=== PATIENT | female | born 1985 | race Caucasian/White ===

== ENCOUNTER → 2017-09-21 08:45 | Outpatient (CLI) | payer OTHER, SELFPAY | LOC: PSN 08:47 | PROVIDERS: Family Provider Family Medicine; PCP Family Medicine; Visit Provider Family Medicine | DX: R07.89 Other chest pain (principal); R00.2 Palpitations; R42 Dizziness and giddiness | CPT/HCPCS: 93225; 93226 ==

== ENCOUNTER → 2017-10-06 08:38 | Outpatient (CLI) | payer OTHER, SELFPAY ==
[2017-10-06 09:15] LABS: Absolute Lymphocyte Count 1.58 X10^3/ul (0.83-4.51); Absolute Neutrophil Count 4.1 X10^3/uL (2.0-7.7); Basophil# 0.04 X10^3/uL; Basophil% 0.6 % (0-1); Eosinophil# 0.18 X10^3/uL; Eosinophils% 2.8 % (0-5); Hematocrit 36.2 % (37-47); Hemoglobin 10.9 g/dl (12.0-15.0); Lymphocyte # 1.58 X10^3/ul (4.0); Mean Corp Hgb Conc 30.1 g/gl (32-36); Mean Corpuscular Hgb 24.8 pg (27.0-32.0); Mean Corpuscular Volume 82.5 fL (81-99); Mean Platelet Vol. 10.6 fl (6.2-12.0); Monocyte# 0.37 X10^3/uL; Monocyte% 5.8 % (0-10); Neutrophil # 4.14 X10^3/uL (2.7-7.7); Neutrophil % 65.5 % (47-70); Platelet Count 252 K/mm3 (150-450); RBC Distribution Width CV 14.1 % (11.6-14.6); RBC Distribution Width SD 42.3 fl (35.1-43.9); Red Blood Count 4.39 M/mm3 (4.2-5.4); White Blood Count 6.3 K/mm3 (4.4-11.0)
[2017-10-06 09:16] LABS: POSITIVE COUNT NO; POSITIVE DIFFERENTIAL NO; POSITIVE MORPHOLOGY NO
[2017-10-06 09:55] LABS: Iron 35 ug/dL (50-170); Iron Binding Capacity,Total 400 ug/dL (250-450)
[2017-10-09 11:48] LABS: Vitamin B12 278 pg/mL (211-911)
== END ==
LOC: LAB 08:39
PROVIDERS: Family Provider Family Medicine; PCP Family Medicine; Visit Provider Family Medicine
DX: D64.9 Anemia, unspecified (principal)
CPT/HCPCS: 36415; 82607; 82746; 83540; 83550; 85025

== ENCOUNTER → 2017-10-30 09:00 | Outpatient (CLI) | payer OTHER, SELFPAY ==
--- NOTE | 2017-10-30 09:01 | ECHOD_ITS ---
Reason For Study: near syncope Procedure This was a 2D Doppler, Color Flow transthoracic echocardiogram. The study was technically difficult. Due to body habitus. Exam performed in department. Left Ventricle Normal LV size. Moderate concentric left ventricular hypertrophy. Left ventricular systolic function is normal. The estimated ejection fraction is 60 %. Normal diastology for age. No regional wall motion abnormalities noted. Right Ventricle Normal RV size. Normal systolic function. Atria The left atrium is mildly enlarged. Normal right atrium. Mitral Valve Normal mitral valve. Mild (1+) eccentric mitral valve insufficiency. Tricuspid Valve Normal tricuspid valve. Mild (1+) tricuspid valve insufficiency. Pulmonary artery systolic pressure is 30 mmHg. Aortic Valve Normal aortic valve. Trisinus/trileaflet aortic valve. Pulmonic Valve The pulmonic valve is not well visualized. Great Vessels Normal aortic root. The pulmonary artery is normal size. Normal inferior vena cava. Pericardium/Pleural No pericardial effusion. MMode/2D Measurements & Calculations LVIDd: 4.9 cm IVSd: 1.4 cm Ao root diam: 2.7 cm LVIDs: 3.1 cm LVPWd: 1.4 cm LA dimension: 4.8 cm RVDd: 3.1 cm FS: 37.3 % LAV(MOD-bp): 71.4 ml LA A4 area: 22.4 cm2 RA A4 area: 17.6 cm2 LAV(MOD-bp) Indexed: 28.2 ml/m2 LAV(MOD-sp2): 66.5 ml LAV(MOD-sp4): 74.5 ml Time Measurements MV dec time: 0.22 sec Doppler Measurements & Calculations MV E max sumanth: 105.2 cm/sec Lat Peak E' Sumanth: 12.9 cm/sec Med Peak E' Sumanth: 10.4 cm/sec MV A max sumanth: 70.2 cm/sec E/E' lat: 8.2 E/E' med: 10.1 MV E/A: 1.5 Ao V2 max: 142.0 cm/sec LV V1 max: 123.3 cm/sec PA V2 max: 106.1 cm/sec Ao max P.1 mmHg LV V1 max P.1 mmHg TR max sumanth: 253.7 cm/sec TR max P.8 mmHg Interpretation Summary Normal LV size. Moderate concentric left ventricular hypertrophy. Left ventricular systolic function is normal. The estimated ejection fraction is 60 %. Normal tricuspid valve. Mild (1+) tricuspid valve insufficiency. Pulmonary artery systolic pressure is 30 mmHg. Normal diastology for age. Ordering Physician: Gage Viera Referring Physician: Gage Viera Performed By: Jazmin Honeycutt, KYLE, RVT
== END ==
LOC: MRI 09:00
PROVIDERS: Family Provider Family Medicine; PCP Family Medicine; Visit Provider Family Medicine
DX: R55 Syncope and collapse (principal)
CPT/HCPCS: 93306

== ENCOUNTER → 2018-03-07 14:10 | Outpatient (CLI) | payer OTHER, SELFPAY ==
--- NOTE | 2018-03-07 14:15 | CT_ITS ---
STUDY: CT MAXILLOFACIAL SINUSES REASON FOR EXAM: Female, 32 years old. History of prior sinus surgery, chronic sinusitis RADIATION DOSAGE (If Supplied By Facility): CTDIvol = ( 33.45 ) mGy, DLP = ( 1055.15 ) mGycm TECHNIQUE: The patient was scanned in a multi detector CT scanner. High resolution axial imaging was performed without the administration of intravenous contrast material. Sagittal and coronal images were reconstructed. Individualized dose optimization techniques were used for this CT. COMPARISON: None. FINDINGS: FRONTAL SINUSES: Normal aeration, without mucosal inflammatory disease. ETHMOIDAL SINUSES: Minimal mucosal thickening of the inferior right ethmoid air cells. No air-fluid levels. MAXILLARY SINUSES: There is polypoid mucosal thickening of the left maxillary sinus filling approximately half of the sinus. No bony destruction or air-fluid levels. There is more circumferential, albeit mildly polypoid, mucosal thickening of the right maxillary sinus filling approximately one third of the maxillary sinus. No air-fluid levels. Bilateral medial maxillary sinus wall osteotomies are identified. SPHENOIDAL SINUSES: Normal aeration, without mucosal inflammatory disease. There is soft tissue/mucosal thickening extending into the right more than left ostiomeatal unit although no expansion is seen. Normal bilateral middle turbinates. Normal bilateral inferior turbinates. Normal midline nasal septum. There is patency of the bilateral nasal airways. The visualized osseous structures are normal. The visualized bilateral orbital contents are normal. CT/Sinus/Facial Bone IMPRESSION: 1. Right more than left chronic sinusitis with mucosal retention cysts. No air-fluid levels or osseous erosion. 2. Mucosal thickening extends into the right more than left ostiomeatal unit. 3. Bilateral medial maxillary sinus wall osteotomies. Electronically Signed: Chencho Phillips MD at 20:01 EDT , Service support ,
== END ==
LOC: CT 14:11
PROVIDERS: Family Provider Internal Medicine; PCP Internal Medicine; Visit Provider Otolaryngology
DX: J32.2 Chronic ethmoidal sinusitis (principal)
CPT/HCPCS: 70486

== ENCOUNTER 2018-03-23 05:52 | Day surgery (SDC) | payer OTHER, SELFPAY ==
--- NOTE | 2018-03-23 | ETH_PTH ---
PATIENT: ATTILA ALVAREZ LOC: [facility] [place] U#:[id number] AGE/SX: 32/F ROOM: RE03/23/[address]: Dr. Kamron Shaikh MD : 1985 BED: DIS: 03/23/2018 SPEC #: [id number] RECD: 03/23/18 10:34 STATUS: ROSMERY CHAO #: [id number] RUSS: 03/23/18 00:[address]: Kamron Shaikh DEPT: SURGICAL PATHOLOGY RECD BY: Kendall Good ENTERED: 03/23/18 10:35 SP TYPE: ETH TISS OTHR DR: Dr. Rizwan Duarte MD Tissues: A - Ethmoid sinus, NOS B - Ethmoid sinus, NOS C - Ethmoid sinus, NOS D - Ethmoid sinus, NOS Procedures: Surgery Specimen Level IV HEADER OPERATION: Endoscopic nasal/sinus with maxillary antrostomy with tissue PRE-OP DIAGNOSIS: Chronic maxillary sinusitis; chronic ethmoidal sinusitis; nasal polyp TISSUE SUBMITTED: A ? Right sinus contents, B ? Left sinus contents, C ? Right maxillary sinus contents, D ? Left maxillary sinus contents MICROSCOPIC DIAGNOSIS A. Right sinus contents, excision: Consistent with chronic sinusitis. Fragments of bone with no pathologic change. B. Left sinus contents, excision. Consistent with chronic sinusitis. Fragments of bone with no pathologic change. C. Right maxillary sinus contents, excision: Consistent with chronic sinusitis. Fragments of bone with no pathologic change. D. Left maxillary sinus contents, excision: Respiratory mucosa with mild chronic inflammation. YASEMIN:tarik 03/26/18 MICROSCOPIC DESCRIPTION Slides are reviewed. GROSS DESCRIPTION A - Received is one container labeled with the patient name and designated right sinus contents. The specimen consists of multiple irregular fragments of red-aguero soft tissue that in aggregate measure 2.5 x 2 x 0.2 cm. The specimen is submitted in its entirety in one cassette. B - Received in fixative is one container labeled with the patient's name and designated left sinus contents. The specimen consists of multiple irregular fragments of red-aguero soft tissue that in aggregate measure 2 x 2 x 0.2 cm. The specimen is totally submitted in one cassette. C - Received is one container labeled with the patient name and designated maxillary sinus content, right. The specimen consists of two irregular fragments of light aguero soft tissue that in aggregate measure 0.2 x 0.2 x less than 0.1 cm. The specimen is totally submitted in one cassette. D - Received is one container labeled with the patient name and designated maxillary contents, left. The specimen consists of multiple irregular fragments of light aguero soft tissue that in aggregate measure 2 x 0.5 x less than 0.1 cm. The specimen is totally submitted in one cassette. / AM:sp 03/23/18 TC: 3 CPT: 30204 x3, 71874 x1
[2018-03-23 06:29] VITALS: BP 117/75; PULSE 60; RESP 16; TEMP 36.7; O2SAT 100; BMI 52.2
[2018-03-23 06:32] LABS: Internal QC Validated? YES +Cl - CLEAR BKGD; Pregnancy, Urine Negative Negative
[2018-03-23 06:45] LABS: Hematocrit 44.7 % (37-47); Hemoglobin 14.5 g/dl (12.0-15.0); Mean Corp Hgb Conc 32.4 g/gl (32-36); Mean Corpuscular Hgb 29.7 pg (27.0-32.0); Mean Corpuscular Volume 91.6 fL (81-99); Mean Platelet Vol. 10.6 fl (6.2-12.0); Platelet Count 223 K/mm3 (150-450); RBC Distribution Width CV 13.5 % (11.6-14.6); RBC Distribution Width SD 44.6 fl (35.1-43.9); Red Blood Count 4.88 M/mm3 (4.2-5.4)
[2018-03-23 06:47] LABS: Scan Indicated on CBC? Y/N NO
[2018-03-23 07:03] LABS: International Normalized Ratio 0.9; Prothrombin Time (Protime)PT. 12.6 SECONDS (11.7-14.9)
[2018-03-23] MEDS: Lidocaine 4% 50 ML Bottle (07:15)
[2018-03-23] MEDS: Oxymetazoline 0.05% 1 SPRAY SPRAY.BTL 15 SPRAY (07:15)
--- NOTE | 2018-03-23 09:14 | PCM.OPRPT ---
Problem List (1) Chronic maxillary sinusitis Status: Chronic (2) Chronic ethmoidal sinusitis Status: Chronic Report of Operation Date of Procedure: 03/23/18 Pre-Operative Diagnosis: Chronic maxillary and ethmoid sinusitis Post-Operative Diagnosis: same Surgery/Procedure Performed:: Bilateral endoscopic total ethmoidectomy, maxillary antorstomies with tissue removal Description of Surgical Findings:: Paula is a 32-year-old female presents evaluation of chronic recurring facial and sinus pain with a history of nasal polyposis with unsuccessful surgery in the past. Although underlying migraine was also suspected CT scan did show chronic maxillary and ethmoid sinus changes and surgery directed at these areas in hopes of alleviation of these complaints was offered and she was eager to proceed. The risks, alternatives, potential benefits, and complications were discussed at length and any questions answered to the patient and/or caregiver's satisfaction. Witnessed informed consent was obtained in the office, and the patient and/or caregiver was agreeable to proceed. Procedure went as follows: The patient was identified in the preoperative holding and brought to the operating room, was placed under general anesthesia and intubated. When appropriate anesthesia was obtained, the navigational head gear was placed and confirmed to be operational in accordance with the washing machine loader's directions. Pledgets soaked in a 50-50 mixture of oxymetazoline and 4% topical lidocaine were placed to decongest the nasal mucosa. These were then removed and beginning on the left side using a 0? endoscope the nasal cavity examined. The insertion of the middle turbinate and uncinate process was then injected with 1% lidocaine with 100,000 epinephrine for a 2 cc total, and a similar injection was then carried on the contralateral side. Upon returning to the left side the middle turbinate was medialized with a [place] elevator. This allowed examination of the maxillary sinus ostia which is then probed with a double ball seeker. There is noted to be an accessory maxillary sinus ostia and this was joined with the natural ostia to prevent a recirculating mucus trap. The uncinate process process was then outfractured with a J curette and transected with a backbiting forceps. This was then removed with the microdebrider creating a wide maxillary antrostomy. There is noted to be a large mucous retention cyst arising from the floor of the sinus and this was then grasped with a giraffe forceps and the lining withdrawn and sent as individual specimen. The ethmoid bulla was then entered and total ethmoidectomy was then carried out working posteriorly to anterior. Any polyps, scar, and mucous secretions were removed. Pledgets soaked in oxymetazoline were then placed for hemostasis and attention turned to the contralateral side. Similar procedure and findings were then carried out. Again there is noted to be an accessory maxillary sinus ostia and a large mucous retention cyst arising from the floor which was again removed and sent as specimen. Floseal hemostatic agent was then applied. An NG tube was then placed to decompress the stomach and the patient returned to anesthesia, revived and extubated having tolerated the procedure well. Type of Anesthesia:: General Anesthesiologist: Messi Pandya Special Medications: none Specimen's removed: maxiallary and ethmoid sinus contents Drains: none Estimated Blood Loss (mL): 200 mL Fluids Replaced: 700 mL Grafts/Implants Used: none - Complications none - Admit VTE Documentation VTE Present on Admission: No VTE Mechan Device Prophylaxis: SCD's VTE Pharm Prophylaxis ordered?: No
--- NOTE | 2018-03-23 09:20 | PCM.DC ---
- Discharge Diagnoses Current Active Problems: Current Active and Chronic Problems (Last Updated 12/19/17 @ 08:39 by Camille Jj) Chronic maxillary sinusitis (Chronic) Chronic ethmoidal sinusitis (Chronic) You will use the following diet at home:: Regular Discharge Activity: Return to Normal Activity, May not drive while taking narcotic pain medications. Call your doctor if your incision/area has: Continuous Slow Oozing, Sudden Increased Bleeding Call your doctor if you observe: Fever of 101 or Higher, Uncontrolled pain Allergies/Adverse Reactions: Allergies cefprozil [From Cefzil] Allergy (Verified 03/19/18 08:16) Hives SEASONAL ALLERGIES Allergy (Intermediate, Uncoded 03/19/18 08:16) Throat swelling, runny nose, itchy eyes Medications to take at Discharge Levothyroxine [Synthroid] 112 mcg PO DAILY 03/07/16 ferrous sulfate 324 mg (65 mg iron) tablet,delayed release 324 mg PO BID tab 11/29/17 fexofenadine 180 mg tablet 180 mg PO QDAY 11/29/17 blood pressure monitor kit See Dose Instructions .ROUTE .MEDSUPPLY #1 ea 02/06/18 RX: Buspirone HCl 5 mg PO TID 03/19/18 RX: Lisinopril [Prinivil] 10 mg PO QHS 03/19/18 Primary Care Physician: Rizwan Duarte MD [Primary Care Provider] - Test Results: Test results from this visit will be discussed in further detail at your follow-up appointment, if applicable. Please Follow Up With: Kamron Shaikh MD When: 2 weeks
[2018-03-23 09:30] VITALS: BP 117/75; BP 150/94; PULSE 75; RESP 17; TEMP 36.8; O2SAT 98
[2018-03-23 09:45] VITALS: BP 117/75; BP 149/88; PULSE 69; RESP 16; O2SAT 97
[2018-03-23 10:00] VITALS: BP 117/75; BP 150/96; PULSE 77; RESP 18; O2SAT 95
[2018-03-23 10:16] VITALS: BP 117/75; BP 150/94; PULSE 60; RESP 18; TEMP 36.8; O2SAT 99
[2018-03-23] MEDS: Ibuprofen 400 MG Tablet PO (10:47)
[2018-03-23 11:06] VITALS: BP 117/75
== END 2018-03-23 11:07 | disposition home or self-care (01) ==
LOC: SDC 05:52 → AC 05:54
PROVIDERS: Anesthesiology; Family Provider Internal Medicine; PCP Internal Medicine; Visit Provider Otolaryngology
PROC: (CPT 31255; principal; 2018-03-23 07:00)
DX: J32.0 Chronic maxillary sinusitis (principal); J32.2 Chronic ethmoidal sinusitis; J34.1 Cyst and mucocele of nose and nasal sinus; Z79.899 Other long term (current) drug therapy; D64.9 Anemia, unspecified; F41.9 Anxiety disorder, unspecified; E07.9 Disorder of thyroid, unspecified; I10 Essential (primary) hypertension; R51 Headache; J33.9 Nasal polyp, unspecified
CPT/HCPCS: 31255; 31267; 81025; 84443; 85027; 85610; 85730; 88305; J7120; J2405

== ENCOUNTER → 2018-07-07 10:38 | Outpatient (CLI) | payer OTHER, SELFPAY ==
[2018-07-07 11:57] LABS: AST(SGOT) 17 U/L (15-37); Alanine Aminotransfer ALT/SGPT 24 U/L (13-56); Albumin, Serum 3.5 g/dL (3.2-5.0); Alkaline Phosphatase 71 U/L (45-117); Anion Gap 5 (5-15); BUN 13 mg/dL (7-18); BUN/Creat Ratio 21.5 RATIO (10-20); Calcium,Total 8.5 mg/dL (8.5-10.1); Chloride 105 mmol/L (98-107); Cholesterol 127 mg/dL (200); Creatinine, Serum 0.61 mg/dL (0.55-1.02); EST Glomerular Filtration Rate 122 mL/min (>60); Est Glom Filt Rate - Afr Amer 148 mL/min (>60); Globulin 3.4 g/dL (2.2-4.2); Glucose 78 mg/dL (74-106); High Density Lipoprotein 41 mg/dL; Potassium 4.4 mmol/L (3.5-5.1); Protein, Total 6.9 g/dL (6.4-8.2); Sodium Level 139 mmol/L (136-145); T4 Free Direct 1.07 ng/dL (0.76-1.46); Thyroid Stim Hormone (TSH) 4.73 uIU/mL (0.358-3.74); Triglycerides 44 mg/dL; Very Low Density Lipoprotein 9 mg/dL (5-40)
--- OUTSIDE RECORDS SUMMARY | 2018-08-24 09:38 | XMS RPT_ITS ---
:1985 Author Organization OHIP Support Name Relationship Address Phone CHAVA QUIROZ Unavailable [id number] + [place] [address] [employer] Unavailable [address] + [place] [phone] AHMET CABRALES Unavailable [address] + [place] [address] CHAVA QUIROZ Unavailable [address] + [place] [address] [employer] [address] + [place] [phone] AHMET CABRALES Unavailable [address] + [place] [address] CHAVA QUIROZ Unavailable [address] + [place] [address] [employer] Un[address] + [place] [phone] AHMET CABRALES Unavailable [address] + [place] [address] CHAVA QUIROZ Unavailable [address] + [place] [address] [employer] Un[address] + [place] [phone] AHMET CABRALES Unavailable Unavailable + CHAVA QUIROZ Unavailable [address] + [place] [address] [employer] Unavailable [address] + [place] [phone] AHMET CABRALES Unavailable Unavailable + [place] [phone] CHAVA QUIROZ Unavailable [address] + [place] [address] [employer] Unavailable [address] + [place] [address] AHMET CABRALES Unavailable . + [place] [address] [employer] Un[address] + [place] [address] [employer] Un[address] + [place] [address] [employer] Un[address] + [place] [address] [employer] Un[address] + [place] [address] SAVANAH ALVAREZ Unavailable [address] + [place] [address] [employer] Un[address] + [place] [address] SAVANAH ALVAREZ Unavailable [address] + [place] [address] [employer] Un[address] + [place] [address] SAVANAH ALVAREZ Unavailable [address] + [place] [address] [employer] Un[address] + [place] [address] SAVANAH ALVAREZ Unavailable [address] + [place] [address] [employer] Un[address] + [place] [address] SAVANAH ALVAREZ Unavailable [address] + [place] [address] [employer] Un[address] + [place] [address] SAVANAH ALVAREZ Unavailable [address] + [place] [address] [employer] Un[address] + [place] [address] SAVANAH ALVAREZ Unavailable [address] + [place] [address] [employer] Un[address] + [place] [address] SAVANAH ALVAREZ Unavailable [address] [place] [phone] [facility] Unavailable [address] + [place] [address] Care Team Providers Name Role Phone NOREEN VIERA Attending Unavailable NOREEN VIERA Referring Unavailable NOREEN VIERA Attending Unavailable AYLIN, NOREEN Tamayo Referring Unavailable AYLIN, NOREEN Tamayo Referring Unavailable AYLIN, NOREEN Tamayo Referring Unavailable Joey Jose Attending Unavailable [place], Noreen Referring Unavailable Price Abraham LOADER OPERATOR/GROUND LEADER-C Attending Unavailable Davidghe, Efewongbe Referring Unavailable [place], Noreen Primary Care Unavailable Kamron Shaikh Attending Unavailable Shaikh, Kamron Referring Unavailable Oleghe, Efewongbe Primary Care Unavailable Oleghe, Efewongbe Attending Unavailable Oleghe, Efewongbe Referring Unavailable Oleghe, Efewongbe Primary Care Unavailable NOT, DEFINED Primary Care Unavailable Christine Campoverde Attending Unavailable Oleghe, Efewongbe Attending Unavailable Oleghe, Efewongbe Referring Unavailable Joey Jose Attending Unavailable Aylin, Noreen Referring Unavailable [place], Noreen Attending Unavailable Aylin, Noreen Primary Care Unavailable Aylin, Noreen Attending Unavailable Aylin, Noreen Referring Unavailable Aylin, Noreen Primary Care Unavailable [place], Noreen Attending Unavailable [place], Noreen Primary Care Unavailable Oleghe, Efewongbe Attending Unavailable Oleghe, Efewongbe Referring Unavailable Shaikh, Kamron Attending Unavailable Shaikh, Kamron Referring Unavailable Oleghe, Efewongbe Primary Care Unavailable Price Abraham LOADER OPERATOR/GROUND LEADER-C Attending Unavailable Oleghe, Efewongbe Referring Unavailable Oleghe, Efewongbe Primary Care Unavailable Davidghe, Efewongbe Attending Unavailable Oleghe, Efewongbe Referring Unavailable Aylin, Noreen Primary Care Unavailable Joey Jose Attending Unavailable Aylin, Noreen Referring Unavailable Aylin, Noreen Primary Care Unavailable Ольга Hercules Attending Unavailable Ольга Hercules Attending Unavailable PROBLEMS PROBLEMS DATE TYPE CONDITION / CODE ATTENDING STATUS SOURCE 07/12/2018 Unknown I10 - Essential Oleghe, Active [place] (primary) hypertension [facility] / I10(ICD-10) Hospital Repository 07/12/2018 Unknown E03.9 - Oleghe, Active [place] Hypothyroidism, [facility] unspecified / Hospital E03.9(ICD-10) Repository 02/06/2018 Unknown J32.9 - Chronic Price Abraham Active [facility] sinusitis, unspecified LOADER OPERATOR/GROUND LEADER-C Community / J32.9(ICD-10) Hospital Repository 12/19/2017 Unknown E66.01 - Morbid Oleghe, Active [place] (severe) obesity due [facility] to excess calories / Hospital E66.01(ICD-10) Repository 12/19/2017 Unknown N89.8 - Other Oleghe, Active [place] specified [facility] noninflammatory Hospital disorders of vagina / Repository N89.8(ICD-10) 12/19/2017 Unknown D50.9 - Iron Oleghe, Active [place] deficiency anemia, [facility] unspecified / Hospital D50.9(ICD-10) Repository 11/29/2017 Unknown R42 - Dizziness and Rebeca, [place] Active [facility] giddiness / Community R42(ICD-10) Hospital Repository 11/24/2017 Unknown R55 - Syncope and Rebeca, [place] Active [facility] collapse / R55(ICD-10) [facility] Hospital Repository 10/06/2017 Unknown D64.9 - Anemia, Noreen [place] Active [facility] unspecified / Community D64.9(ICD-10) Hospital Repository 10/05/2017 Active Anemia, unspecified / NA Active [facility] D64.9(ICD-10) [facility] Main [place] Repository 09/20/2017 Active Abnormal NA Active [facility] electrocardiogram [facility] (ECG) (EKG) / [place] R94.31(ICD-10) Repository 09/20/2017 Active Dizziness and NA Active [facility] giddiness / [facility] Main R42(ICD-10) [place] Repository 09/01/2017 Active Hypothyroidism, NA Active [facility] unspecified / [facility] E03.9(ICD-10) [place] Repository PROCEDURES PROCEDURES No Procedure Records FoundRESULTS RESULTS INTERNAL MEDICINE Observed: 07/17/2018 Status: F Source: [place] OFFICE VISIT 8:41 AM [facility] REPOSITORY [facility] [address] [place] [address] [place] [address] OFFICE VISIT Date of Service: 07/12/18 MR#: [id number] Acct: [id number] Name: GLENDA CABRALES Rep #: [id number] : 1985 Provider: Rizwan Duarte MD Age/Sex: 33/F Location: [facility] [place] Status: Signed Intake Vital Signs07/12/18 Height 5 ft 7 in 07/12/18 Weight: 323 lb 07/12/18 Body Mass Index (BMI) 50.5 07/12/18 Blood Pressure 120/74 Intake Visit Reasons: 2 MO FU Chief Complaint: 2 Mo FU - BW results Is patient in pain?: No Allergies cefprozil [From Cefzil] Allergy (Verified 07/12/18 13:50) Hives SEASONAL ALLERGIES Allergy (Intermediate, Uncoded 07/12/18 13:50) Throat swelling, runny nose, itchy eyes Medications fexofenadine 180 mg tablet 180 mg PO QDAY 11/29/17 [History Confirmed 07/12/18] Lisinopril [Prinivil] 10 mg PO QHS 03/19/18 [History Confirmed 07/12/18] ferrous sulfate 324 mg (65 mg iron) tablet,delayed release 324 mg PO BID #60 tab 04/18/18 [Rx Confirmed 07/12/18] buspirone 5 mg tablet 5 mg PO TID #90 tab 06/12/18 [Rx Confirmed 07/12/18] levothyroxine 137 mcg tablet 137 mcg PO DAILY #30 tab 07/12/18 [Rx Confirmed 07/12/18] PFSH Medical History Headache (Chronic) Iron (Fe) deficiency anemia (Chronic) Hypothyroidism (Chronic) Anxiety (Chronic) Depression (Chronic) Sinusitis (Chronic) Super obesity (Chronic) Left ventricular hypertrophy (Chronic) Surgical History History of tonsillectomy and adenoidectomy (Chronic) History of nasal polypectomy (Chronic) Family History Mother Hypertension Anxiety Thyroid disorder Father Hypertension Social History Smoking Status: Never smoker alcohol intake: current alcohol intake frequency: holidays/special occasions only substance use type: does not use what type of physical activity do you participate in: none HPI HPI Chief Complaint: 2 Mo FU - BW results Details: GLENDA CABRALES, is a 33yo F who presents to the office today for follow-up of her chronic medical conditions. She has no acute complaints at this time. Recently had adjustments to her levothyroxine and repeat thyroid function with improvement in her TSH. She denies any concerns with over or under correction at this time. She reports compliance with medications. ROS Const Constitutional: No chills, fatigue, fever(s), frequent falls, malaise, weakness, sleep problems or change in appetite Eyes Eyes: No blurry vision, change in vision, double vision, discharge or visual disturbances ENT ENT: No abnormal hearing, ear pain, ear pressure, tinnitus or dizziness/vertigo Resp Respiratory: No shortness of breath or wheezing Cardio Cardiology: No chest pain at rest, chest pain with exertion, shortness of breath, dyspnea on exertion, generalized swelling, irregular heart rhythm, lightheadedness, orthopnea, fast heart rate or palpitations Gastro GI: No abdominal pain, change in bowel habits, constipation, diarrhea, nausea/dyspepsia or vomiting Genitourinary-Female: No difficulty urinating, burning urination, painful urination, urinary incontinence, urinary frequency, urinary urgency, urinary hesitancy, urinary retention, Frequent nighttime urination/ nocturia, sexual problems, genital lesions, abnormal vaginal bleeding, pelvic pain, vaginal dryness, vaginal odor or Vaginal Itching Musc Musculoskeletal: No joint pain, back pain, joint swelling, limited range of motion, numbness or tingling Skin Skin: No change in skin color, itching, rash or wounds Breast Breast: No breast lump or breast pain Neuro Neurology: No frequent falls, weakness, visual disturbances, abnormal hearing, numbness, tingling, unsteady gait/balance, dizziness, loss of vision or memory loss Psych Psychiatric: No change in appetite, No memory loss, No anxiety, No depression, No Thoughts of harming yourself/Others Endo Endocrine: No fatigue, heat intolerance, increased thirst/drinking, increased hunger or increased urination Aller/Imm Allergy/Immunologic: No wheezing, itchy eyes or seasonal allergy symptoms Brian/Lymp Hematologic/Lymphatic: No easy bleeding, easy bruising or enlarged lymph nodes Exam Const General: cooperative, no acute distress Orientation: alert, awake, oriented x3 HENMT Head: atraumatic, normocephalic, normal to inspection Ears: hearing grossly normal bilaterally Resp Effort AND Inspection: normal respiratory effort, able to speak in complete sentences Auscultation: Bilateral: Clear to Auscultation Cardio Rate: regular rate Rhythm: regular rhythm Heart Sounds: S1 normal, S2 normal GI Palpation: soft, no hepatosplenomegaly Neuro General: alert, awake, oriented x3, moves all extremities, CN's II-XI intact bilaterally Extrem General: pedal edema Psych Appearance: grossly normal Mental Status: mental status grossly normal Mood: congruent mood Affect: normal affect Assessment AND Plan 1. Hypothyroidism E03.9 Plan TSH has been improved over the last year. Most recent TSH of 4.73, free T4 within normal. Increase levothyroxine to 137 mcg daily. Repeat thyroid function in 6-8 weeks. Advised to call with any questions or concerns. Orders Orders: 2. Hypertension I10 Plan Optimally controlled. Continue current medication and lifestyle/dietary modifications. Orders Orders: 3. Morbid obesity E66.01 Plan States that she has lost about 30 pounds over the last year so. Currently trying out the keto diet. Intermittent fasting also recommended. CMP to monitor kidney and liver function as above. Follow-up in 3 months. This note was generated with [employer] dictation software. It may contain incorrect words, spelling, and punctuation that were not noted in checking the note before signing. Plan Detail Other Medications Changed: Coding Level of Care Code Off vis,est,level 3 Diagnoses Hypothyroidism E03.9 Hypertension I10 Morbid obesity E66.01 07/17/18 0841 <Electronically signed by Rizwan Duarte MD> Date Rizwan Duarte MD Cosigner Signature: Date (if applicable) CC: COMPREHENSIVE METABOLIC Collected: 07/07/2018 Status: F Source: [place] ADA[place] 10:56 AM [facility] REPOSITORY TYPE CODE TESTS RESULT OUT OF RANGE REFERENCE UNITS LAB L501.0100 74-106 mg/dL Normal GLU 78 Result Comment: Please note revised GLUCOSE reference range effective 2017. LAB L501.1000 7-18 mg/dL Normal BUN 13 LAB L501.1100 0.55-1.02 mg/dL Normal CREAT,SERUM 0.61 Result Comment: The validity of the calculated GFR AND GFRAA in patients over 70 years has not been determined. Clinical correlation is essential. LAB L501.1110 >60 mL/min Normal EST GFR 122 Result Comment: Non- GFR Calc LAB L501.1115 >60 mL/min Normal EST GFR - AA 148 Result Comment: GFR Calc LAB L501.1300 10-20 RATIO High BUN/CRE 21.5 LAB L501.1500 6.4-8.2 g/dL T Normal PROT 6.9 LAB L501.1800 3.2-5.0 g/dL Normal ALB 3.5 LAB L501.1950 2.2-4.2 g/dL Normal GLOB 3.4 LAB L501.2000 0.9-2.4 RATIO Normal A/G 1.0 LAB L501.2200 8.5-10.1 mg/dL CA Normal 8.5 LAB L501.4100 15-37 U/L Normal AST 17 LAB L501.4305 45-117 U/L Normal ALK P 71 LAB L501.4405 13-56 U/L Normal ALT 24 LAB L501.4600 0.20-1.00 mg/dL High T BILI 1.20 LAB L501.5300 136-145 mmol/L NA Normal 139 LAB L501.5600 3.5-5.1 mmol/L K Normal 4.4 LAB L501.5900 98-107 mmol/L CL Normal 105 LAB L501.6100 21.0-32.0 mmol/L Normal CO2 29.0 LAB L501.6200 5-15 Normal GAP 5 Performed By: #### L500.4050, L500.4100, L501.9520, L506.0400 #### [facility] [address] [place], [place], [id number] LIPID PROFILE Collected: 07/07/2018 Status: F Source: [place] 10:56 AM [facility] REPOSITORY TYPE CODE TESTS RESULT OUT OF RANGE REFERENCE UNITS LAB L501.4900 200 mg/dL Normal CHOL 127 Result Comment: <200 mg/dL Desirable 200-240 mg/dL Borderline >240 mg/dL High Risk LAB L501.5000 mg/dL Normal TRIG 44 Result Comment: The drugs N-Acetylcysteine and Metamizole may falsely depress this assay. Serum Triglycerides Reference Interval Normal <150 mg/dL Borderline high 150 - 199 mg/dL High 200 - 499 mg/dL Very High > or = 500 mg/dL LAB L501.6400 mg/dL Normal HDL 41 Result Comment: The drugs N-Acetylcysteine and Metamizole may falsely depress this assay. Reference Range HDL <40 mg/dL Low HDL Cholesterol HDL >or= 60 mg/dL High HDL Cholesterol LAB L501.6500 0-130 mg/dL Normal LDL 77 LAB L501.6600 5-40 mg/dL Normal VLDL 9 Performed By: #### L500.4050, L500.4100, L501.9520, L506.0400 #### [facility] [address] [place], [address] THYROID STIM HORMONE Collected: 07/07/2018 Status: F Source: [place] (TSH) 10:56 AM [facility] REPOSITORY TYPE CODE TESTS RESULT OUT OF RANGE REFERENCE UNITS LAB L501.9520 0.358-3.74 uIU/mL High TSH 4.73 Performed By: #### L500.4050, L500.4100, L501.9520, L506.0400 #### [facility] [address] [place], [address] T4 FREE DIRECT Collected: 07/07/2018 Status: F Source: [place] 10:56 AM [facility] REPOSITORY TYPE CODE TESTS RESULT OUT OF RANGE REFERENCE UNITS LAB L506.0400 0.76-1.46 ng/dL Normal T4 FREE 1.07 DIRECT Performed By: #### L500.4050, L500.4100, L501.9520, L506.0400 #### [facility] [address] [place], [address] INTERNAL MEDICINE Observed: 05/11/2018 Status: F Source: [place] OFFICE VISIT 4:33 PM [facility] REPOSITORY [facility] [address] [place] [address] [place] [address] OFFICE VISIT Date of Service: 05/10/18 MR#: [id number] Acct: [id number] Name: GLENDA CABRALES Rep #: [id number] : 1985 Provider: Rizwan Duarte MD Age/Sex: 33/F Location: [facility] Status: Signed Intake Vital Signs05/10/18 Height 5 ft 7 in Intake Visit Reasons: Palpatations, wants Thyroid checked Chief Complaint: palpatations, thyroid check Is patient in pain?: Yes (sinus pressure) Allergies cefprozil [From Cefzil] Allergy (Verified 03/19/18 08:16) Hives SEASONAL ALLERGIES Allergy (Intermediate, Uncoded 03/19/18 08:16) Throat swelling, runny nose, itchy eyes Medications Levothyroxine [Synthroid] 112 mcg PO DAILY 03/07/16 [History Confirmed 03/23/18] fexofenadine 180 mg tablet 180 mg PO QDAY 11/29/17 [History Confirmed 03/23/18] blood pressure monitor kit See Dose Instructions .ROUTE .MEDSUPPLY #1 ea 02/06/18 [Rx Confirmed 02/06/18] Buspirone HCl 5 mg PO TID 03/19/18 [History Confirmed 03/23/18] Lisinopril [Prinivil] 10 mg PO QHS 03/19/18 [History Confirmed 03/23/18] ferrous sulfate 324 mg (65 mg iron) tablet,delayed release 324 mg PO BID #60 tab 04/18/18 [Rx] Is last menstrual period known: Yes PFSH Medical History Headache (Chronic) Iron (Fe) deficiency anemia (Chronic) Hypothyroidism (Chronic) Anxiety (Chronic) Depression (Chronic) Sinusitis (Chronic) Super obesity (Chronic) Left ventricular hypertrophy (Chronic) Surgical History History of tonsillectomy and adenoidectomy (Chronic) History of nasal polypectomy (Chronic) Family History Mother Hypertension Anxiety Thyroid disorder Father Hypertension Social History Smoking Status: Never smoker alcohol intake: current alcohol intake frequency: holidays/special occasions only substance use type: does not use what type of physical activity do you participate in: none HPI HPI Chief Complaint: palpatations, thyroid check Details: GLENDA CABRALES, is a 33yo F who presents to the office today for follow-up of her chronic medical conditions. She also has some concerns at this time. She has a history of hypothyroidism and last thyroid function check with suboptimal control. She has had no dose adjustments. She reports occasional palpitations but denies chest pain and shortness of breath. Has also become more active and currently trying not to keep to diet. She has noticed leg cramps which is said to be worse at night. Denies any significant swelling or tenderness. ROS Const Constitutional: No weight change, body ache, chills, fatigue, sleep problems, fever(s), change in appetite, snoring, weakness, frequent falls, headache(s) or excessive sweating Eyes Eyes: No change in vision, eye pain, light sensitivity or blurry vision ENT ENT: No headache(s), abnormal hearing, ear pain, tinnitus, nasal congestion, sore throat or neck pain Resp Respiratory: No snoring, cough, shortness of breath or wheezing Cardio Cardiology: No excessive sweating, chest pain at rest, chest pain with exertion, shortness of breath, dyspnea on exertion, orthopnea or lightheadedness Gastro GI: No abdominal pain, change in bowel habits, constipation, diarrhea, vomiting, nausea/dyspepsia or cramping Genitourinary-Female: No burning urination, painful urination, urinary incontinence, urinary frequency, abnormal vaginal bleeding, pelvic pain or other Musc Musculoskeletal: Positive for muscle cramps; no neck pain, abnormal walking, joint pain, back pain, limited range of motion, numbness or tingling Skin Skin: No redness, dry skin, itching, lesions, wounds or rash Neuro Neurology: No weakness, frequent falls, headache(s), abnormal hearing, abnormal walking, numbness, tingling, abnormal speech, dizziness or memory loss Psych Psychiatric: No change in appetite, No memory loss, No anxiety, No depression, No Thoughts of harming yourself/Others Endo Endocrine: No fatigue, excessive sweating, cold intolerance, increased thirst/drinking, heat intolerance, flushing or increased hunger Aller/Imm Allergy/Immunologic: No wheezing, itchy eyes, hives or seasonal allergy symptoms Brian/Lymp Hematologic/Lymphatic: No easy bleeding, easy bruising or enlarged lymph nodes Exam Const General: cooperative, no acute distress Orientation: alert, awake, oriented x3 HENMT Head: atraumatic, normocephalic, normal to inspection Ears: hearing grossly normal bilaterally Resp Effort AND Inspection: normal respiratory effort, able to speak in complete sentences Auscultation: Bilateral: Clear to Auscultation Cardio Rate: regular rate Rhythm: regular rhythm Heart Sounds: S1 normal, S2 normal GI Palpation: soft, no hepatosplenomegaly Neuro General: alert, awake, oriented x3, moves all extremities, CN's II-XI intact bilaterally Extrem General: pedal edema bilaterally Location: of the leg Severity: 1+ Psych Appearance: grossly normal Mental Status: mental status grossly normal Mood: congruent mood Affect: normal affect Assessment AND Plan 1. Hypothyroidism E03.9 Plan Suboptimal control. Increase levothyroxine to 125 mcg. Repeat thyroid function in 8 weeks. Advised to call with any questions or concerns. Orders Orders: 2. Hypertension I10 Plan Stable. Continue current medication. Continue lifestyle/dietary modifications. Orders Orders: 3. Morbid obesity E66.01 Plan Currently doing the every 2 diet. Moderation is encouraged. Reassess at next visit. 4. Iron (Fe) deficiency anemia D50.9 Plan Hemoglobin stable during last check. Continue iron supplements. 5. Leg cramps R25.2 Plan Acute. None distressing. Increase fluid intake. Gatorade as needed also recommended. CMP as scheduled above. Advised to call if she notes worsening symptoms. This note was generated with [employer] dictation software. It may contain incorrect words, spelling, and punctuation that were not noted in checking the note before signing. Coding Level of Care Code Off vis,est,level 4 Diagnoses Hypothyroidism E03.9 Hypertension I10 Morbid obesity E66.01 Iron (Fe) deficiency anemia D50.9 Leg cramps R25.2 05/11/18 1633 <Electronically signed by Rizwan Duarte MD> Date Rizwan Duarte MD Cosigner Signature: Date (if applicable) CC: OPERATIVE REPORT Observed: 03/26/2018 Status: F Source: [place] 1:15 PM [facility] REPOSITORY [facility] Medical Records Department [address] [address] Operative Report 03/23/18 0914 MR#: [id number] Acct: [id number] Name: GLENDA CABRALES Rep #: [id number] : 1985 32 From: [place] Shaikh MD PCP: Rizwan Duarte MD Status: DEP [facility] [place] [facility] Problem List (1) Chronic maxillary sinusitis Status: Chronic (2) Chronic ethmoidal sinusitis Status: Chronic Report of Operation Date of Procedure: 03/23/18 Pre-Operative Diagnosis: Chronic maxillary and ethmoid sinusitis Post-Operative Diagnosis: same Surgery/Procedure Performed:: Bilateral endoscopic total ethmoidectomy, maxillary antorstomies with tissue removal Description of Surgical Findings:: Paula is a 32-year-old female presents evaluation of chronic recurring facial and sinus pain with a history of nasal polyposis with unsuccessful surgery in the past. Although underlying migraine was also suspected CT scan did show chronic maxillary and ethmoid sinus changes and surgery directed at these areas in hopes of alleviation of these complaints was offered and she was eager to proceed. The risks, alternatives, potential benefits, and complications were discussed at length and any questions answered to the patient and/or caregiver's satisfaction. Witnessed informed consent was obtained in the office, and the patient and/or caregiver was agreeable to proceed. Procedure went as follows: The patient was identified in the preoperative holding and brought to the operating room, was placed under general anesthesia and intubated. When appropriate anesthesia was obtained, the navigational head gear was placed and confirmed to be operational in accordance with the editor's directions. Pledgets soaked in a 50-50 mixture of oxymetazoline and 4% topical lidocaine were placed to decongest the nasal mucosa. These were then removed and beginning on the left side using a 0 endoscope the nasal cavity examined. The insertion of the middle turbinate and uncinate process was then injected with 1% lidocaine with 100,000 epinephrine for a 2 cc total, and a similar injection was then carried on the contralateral side. Upon returning to the left side the middle turbinate was medialized with a Tamara elevator. This allowed examination of the maxillary sinus ostia which is then probed with a double ball seeker. There is noted to be an accessory maxillary sinus ostia and this was joined with the natural ostia to prevent a recirculating mucus trap. The uncinate process process was then outfractured with a J curette and transected with a backbiting forceps. This was then removed with the microdebrider creating a wide maxillary antrostomy. There is noted to be a large mucous retention cyst arising from the floor of the sinus and this was then grasped with a giraffe forceps and the lining withdrawn and sent as individual specimen. The ethmoid bulla was then entered and total ethmoidectomy was then carried out working posteriorly to anterior. Any polyps, scar, and mucous secretions were removed. Pledgets soaked in oxymetazoline were then placed for hemostasis and attention turned to the contralateral side. Similar procedure and findings were then carried out. Again there is noted to be an accessory maxillary sinus ostia and a large mucous retention cyst arising from the floor which was again removed and sent as specimen. Floseal hemostatic agent was then applied. An NG tube was then placed to decompress the stomach and the patient returned to anesthesia, revived and extubated having tolerated the procedure well. Type of Anesthesia:: General Anesthesiologist: Messi Pandya Special Medications: none Specimen's removed: maxiallary and ethmoid sinus contents Drains: none Estimated Blood Loss (mL): 200 mL Fluids Replaced: 700 mL Grafts/Implants Used: none - Complications none - Admit VTE Documentation VTE Present on Admission: No VTE Mechan Device Prophylaxis: SCD's VTE Pharm Prophylaxis ordered?: No 03/23/18 0920 <Electronically signed by Kamron Shaikh MD> Date Kamron Shaikh MD CC: Rizwan Duarte MD; Kamron Shaikh MD Signed DISCHARGE INSTRUCTION Observed: 03/23/2018 Status: F Source: [place] 12:03 PM [facility] REPOSITORY [facility] Records Department [address] [place] [address] Instructions for Home/Discharge Instructions 03/23/18919 MR#: [id number] Acct: [id number] Name: GLENDA CABRALES Rep #: [id number] : 1985 32 From: Kamron Shaikh MD PCP: Rizwan Duarte MD Status: DEP SDC - Discharge Diagnoses Current Active Problems: Current Active and Chronic Problems (Last Updated 12/19/17 @ 08:39 by Camille Jj) Chronic maxillary sinusitis (Chronic) Chronic ethmoidal sinusitis (Chronic) You will use the following diet at home:: Regular Discharge Activity: Return to Normal Activity, May not drive while taking narcotic pain medications. Call your doctor if your incision/area has: Continuous Slow Oozing, Sudden Increased Bleeding Call your doctor if you observe: Fever of 101 or Higher, Uncontrolled pain Allergies/Adverse Reactions: Allergies cefprozil [From Cefzil] Allergy (Verified 03/19/18 08:16) Hives SEASONAL ALLERGIES Allergy (Intermediate, Uncoded 03/19/18 08:16) Throat swelling, runny nose, itchy eyes Medications to take at Discharge Levothyroxine [Synthroid] 112 mcg PO DAILY 03/07/16 ferrous sulfate 324 mg (65 mg iron) tablet,delayed release 324 mg PO BID tab 11/29/17 fexofenadine 180 mg tablet 180 mg PO QDAY 11/29/17 blood pressure monitor kit See Dose Instructions .ROUTE .MEDSUPPLY #1 ea 02/06/18 RX: Buspirone HCl 5 mg PO TID 03/19/18 RX: Lisinopril [Prinivil] 10 mg PO QHS 03/19/18 Primary Care Physician: Rizawn Duarte MD [Primary Care Provider] - Test Results: Test results from this visit will be discussed in further detail at your follow-up appointment, if applicable. Please Follow Up With: Kamron Shaikh MD When: 2 weeks 03/23/18920 <Electronically signed by Kamron Shaikh MD> Date Kamron Shaikh MD CC: Rizwan Duarte MD CBC-COMPLETE BLOOD CNT Collected: 03/23/2018 Status: F Source: KATHY NO DIFF 6:30 AM [facility] REPOSITORY TYPE CODE TESTS RESULT OUT OF RANGE REFERENCE UNITS LAB L100.1000 4.4-11.0 K/mm3 Normal WBC 8.0 LAB L100.1200 4.2-5.4 M/mm3 Normal RBC 4.88 LAB L100.1300 12.0-15.0 g/dl Normal HGB 14.5 LAB L100.1400 37-47 % Normal HCT 44.7 LAB L100.1500 81-99 fL Normal MCV 91.6 LAB L100.1600 27.0-32.0 pg Normal MCH 29.7 LAB L100.1700 32-36 g/gl Normal MCHC 32.4 LAB L100.1810 11.6-14.6 % Normal RDW CV 13.5 LAB L100.1820 35.1-43.9 fl High RDW SD 44.6 LAB L100.1900 150-450 K/mm3 Normal PLT 223 LAB L100.2000 6.2-12.0 fl Normal MPV 10.6 Performed By: #### L400.7600, L100.0500, L300.3900, L300.4310 #### [facility] [address] [place], [place], [id number] PROTHROMBIN TIME W/INR Collected: 03/23/2018 Status: F Source: KATHY 6:30 AM [facility] REPOSITORY TYPE CODE TESTS RESULT OUT OF RANGE REFERENCE UNITS LAB L300.4150 11.7-14.9 SECONDS Normal PROTIME 12.6 LAB L300.4200 Normal INR 0.9 Performed By: #### L400.7600, L100.0500, L300.3900, L300.4310 #### [facility] [address] [place], [place], [id number] PARTIAL THROMBOPLAST Collected: 03/23/2018 Status: F Source: K[place]Y TIME 6:30 AM [facility] REPOSITORY TYPE CODE TESTS RESULT OUT OF RANGE REFERENCE UNITS LAB L300.4310 24.1-36.2 Seconds Normal PTT 25.0 Performed By: #### L400.7600, L100.0500, L300.3900, L300.4310 #### [facility] [address] [place], [address] THYROID STIM HORMONE Collected: 03/23/2018 Status: F Source: LAUREL (TSH) 6:30 AM [facility] REPOSITORY TYPE CODE TESTS RESULT OUT OF RANGE REFERENCE UNITS LAB L501.9520 0.358-3.74 uIU/mL High TSH 10.80 Performed By: #### L501.9520 #### [facility] [address] [place], [address] ,URINE Collected: 03/23/2018 Status: F Source: K[place]Y 6:18 AM [facility] REPOSITORY TYPE CODE TESTS RESULT OUT OF REFERENCE UNITS RANGE LAB L400.8000 Negative Normal HCGUQUAL Negative Result Comment: Very dilute urine specimens, as indicated by a low specific gravity, may not contain field representatives director levels of hCG. If is still suspected, a first morning urine specimen should be collected 48 hours later and tested. Performed By: #### L400.7600, L100.0500, L300.3900, L300.4310 #### [facility] [address] [place], [address] ETHMOID TISSUE Observed: 03/23/2018 Status: F Source: LA[place]L 12:00 AM [facility] REPOSITORY Patient: GLENDA CABRALES : 1985 () Acct Num: [id number] Phys: Kamron Shaikh MD Unit Num: [id number] [place] [facility] [place]imen: [id number] Received: 03/23/18 - 1034 Spec Type: ETH TISS TISSUES TISSUES: A. Ethmoid sinus, NOS B. Ethmoid sinus, NOS C. Ethmoid sinus, NOS D. Ethmoid sinus, NOS GROSS DESCRIPTION A - Received is one container labeled with the patient name and designated right sinus contents. The specimen consists of multiple irregular fragments of red-aguero soft tissue that in aggregate measure 2.5 x 2 x 0.2 cm. The specimen is submitted in its entirety in one cassette. B - Received in fixative is one container labeled with the patient's name and designated left sinus contents. The specimen consists of multiple irregular fragments of red-aguero soft tissue that in aggregate measure 2 x 2 x 0.2 cm. The specimen is totally submitted in one cassette. C - Received is one container labeled with the patient name and designated maxillary sinus content, right. The specimen consists of two irregular fragments of light aguero soft tissue that in aggregate measure 0.2 x 0.2 x less than 0.1 cm. The specimen is totally submitted in one cassette. D - Received is one container labeled with the patient name and designated maxillary contents, left. The specimen consists of multiple irregular fragments of light aguero soft tissue that in aggregate measure 2 x 0.5 x less than 0.1 cm. The specimen is totally submitted in one cassette. / AM:tarik 03/23/18 TC: 3 CPT: 11549 x3, 25533 x1 HEADER OPERATION: Endoscopic nasal/sinus with maxillary antrostomy with tissue PRE-OP DIAGNOSIS: Chronic maxillary sinusitis; chronic ethmoidal sinusitis; nasal polyp TISSUE SUBMITTED: A Right sinus contents, B Left sinus contents, C Right maxillary sinus contents, D Left maxillary sinus contents MICROSCOPIC DESCRIPTION Slides are reviewed. MICROSCOPIC DIAGNOSIS A. Right sinus contents, excision: Consistent with chronic sinusitis. Fragments of bone with no pathologic change. B. Left sinus contents, excision. Consistent with chronic sinusitis. Fragments of bone with no pathologic change. C. Right maxillary sinus contents, excision: Consistent with chronic sinusitis. Fragments of bone with no pathologic change. D. Left maxillary sinus contents, excision: Respiratory mucosa with mild chronic inflammation. AM:tarik 03/26/18 Signed [facility] 03/26/18 <signature on file> Performed By: #### PET #### [facility] [address] [place], [address] SINUS/FACIAL BONE Observed: 03/07/2018 Status: F Source: LAUREL 2:15 PM [facility] REPOSITORY [facility] Imaging Services [address] [place] [address] Sinus/Facial Bone MR#: [id number] Acct: [id number] Name: GLENDA CABRALES Rep #: [id number] : 1985 F 32 From: Chencho Phillips MD PCP: Rizwan Duarte MD Status: REG CLI Study: Sinus/Facial Bone Date of Exam: 03/07/18 Exam# [id number] Ordering Dr: Kamron Shaikh MD STUDY: CT MAXILLOFACIAL SINUSES REASON FOR EXAM: Female, 32 years old. History of prior sinus surgery, chronic sinusitis RADIATION DOSAGE (If Supplied By Facility): CTDIvol = ( 33.45 ) mGy, DLP = ( 1055.15 ) mGycm TECHNIQUE: The patient was scanned in a multi detector CT scanner. High resolution axial imaging was performed without the administration of intravenous contrast material. Sagittal and coronal images were reconstructed. Individualized dose optimization techniques were used for this CT. COMPARISON: None. FINDINGS: FRONTAL SINUSES: Normal aeration, without mucosal inflammatory disease. ETHMOIDAL SINUSES: Minimal mucosal thickening of the inferior right ethmoid air cells. No air-fluid levels. MAXILLARY SINUSES: There is polypoid mucosal thickening of the left maxillary sinus filling approximately half of the sinus. No bony destruction or air-fluid levels. There is more circumferential, albeit mildly polypoid, mucosal thickening of the right maxillary sinus filling approximately one third of the maxillary sinus. No air-fluid levels. Bilateral medial maxillary sinus wall osteotomies are identified. SPHENOIDAL SINUSES: Normal aeration, without mucosal inflammatory disease. There is soft tissue/mucosal thickening extending into the right more than left ostiomeatal unit although no expansion is seen. Normal bilateral middle turbinates. Normal bilateral inferior turbinates. Normal midline nasal septum. There is patency of the bilateral nasal airways. The visualized osseous structures are normal. The visualized bilateral orbital contents are normal. CT/Sinus/Facial Bone IMPRESSION: 1. Right more than left chronic sinusitis with mucosal retention cysts. No air-fluid levels or osseous erosion. 2. Mucosal thickening extends into the right more than left ostiomeatal unit. 3. Bilateral medial maxillary sinus wall osteotomies. Electronically Signed: Chencho Phillips MD at 20:01 EDT , Service support , CC: Rizwan Duarte MD; Kamron Shaikh MD Retort Setter: Signed INTERNAL MEDICINE Observed: 03/07/2018 Status: F Source: KATHY OFFICE VISIT 10:59 AM [facility] Internal Medicine [address] [place] [address] OFFICE VISIT Date of Service: 03/06/18 MR#: [id number] Acct: [id number] Name: GLENDA CABRALES Rep #: [id number] : 1985 Provider: Price Abraham NP Age/Sex: 32/F Location: [facility] [place] Status: Signed Intake Vital Signs03/06/18 Height 5 ft 7 in Intake Visit Reasons: Sinus pressure AND nosebleeds Chief Complaint: nosebleeds and sinus pressure Is patient in pain?: Yes (sinus pressure) Pain scale (1-10): 5 Allergies cefprozil [From Cefzil] Allergy (Verified 12/19/17 08:36) Hives SEASONAL ALLERGIES Allergy (Intermediate, Uncoded 12/19/17 08:37) Throat swelling, runny nose, itchy eyes Medications Levothyroxine [Synthroid] 112 mcg PO DAILY 03/07/16 [History Confirmed 12/19/17] ferrous sulfate 324 mg (65 mg iron) tablet,delayed release 324 mg PO BID tab 11/29/17 [History Confirmed 12/19/17] fexofenadine 180 mg tablet 180 mg PO QDAY 11/29/17 [History Confirmed 12/19/17] lisinopril 10 mg tablet 10 mg PO QDAY #30 tab 11/29/17 [Rx Confirmed 12/19/17] buspirone 5 mg tablet 5 mg PO TID #90 tab 01/18/18 [Rx] blood pressure monitor kit See Dose Instructions .ROUTE .MEDSUPPLY #1 ea 02/06/18 [Rx Confirmed 02/06/18] fluticasone 50 mcg/actuation nasal spray,suspension 2 spray INTRANASAL QDAY #47.4 g 02/06/18 [Rx Confirmed 02/06/18] dextromethorphan-guaifenesin ER 60 mg-1,200 mg tab,extend release,12hr 1 tab PO Q12H PRN #20 tab 03/06/18 [Rx Confirmed 03/06/18] Is last menstrual period known: Yes PFSH Medical History Headache (Chronic) Iron (Fe) deficiency anemia (Chronic) Hypothyroidism (Chronic) Anxiety (Chronic) Depression (Chronic) Sinusitis (Chronic) Super obesity (Chronic) Left ventricular hypertrophy (Chronic) Surgical History History of tonsillectomy and adenoidectomy (Chronic) History of nasal polypectomy (Chronic) Family History Mother Hypertension Anxiety Thyroid disorder Father Hypertension Social History Smoking Status: Never smoker alcohol intake: current alcohol intake frequency: holidays/special occasions only substance use type: does not use what type of physical activity do you participate in: none HPI HPI Chief Complaint: nosebleeds and sinus pressure Details: GLENDA CABRALES, is a 32 F who presents to the office today for complaints of nosebleeds and sinus pressure. She has a past medical history of hypertension, headaches, hypothyroidism, anxiety, depression, chronic sinusitis, and left ventricular hypertrophy. Patient complains sinus drainage and pressure for the past 3-4 days. She stated she does have a history of a nosebleed x1 a couple of days ago, which resolved quickly. She complains of a sore throat and sinus drainage to the back of her throat. She was recently referred to Dr. Shaikh, ENT for chronic sinusitis, which she stated he ordered a CT scan and is to be done tomorrow. She currently takes Pascale and Flonase, which she stated is not helping much with her sinus drainage. She does note that the sinus drainage causes her to have productive cough of clear sputum that keeps her awake at night. The patient otherwise denies any fever, chills, nausea, vomiting, shortness of breath, chest pain or pressure, palpitations, orthopnea, syncope or presyncopal episodes. ROS Const Constitutional: No weight change, body ache, chills, fatigue, sleep problems, fever(s), change in appetite, snoring, weakness, frequent falls, headache(s) or excessive sweating Eyes Eyes: No change in vision, eye pain, light sensitivity or blurry vision ENT ENT: Positive for nasal congestion, sore throat, nosebleed/epistaxis, sinus pain, throat swelling, sinus pressure, post nasal drip and nasal discharge; no headache(s), abnormal hearing, ear pain, tinnitus or neck pain Resp Respiratory: No snoring, cough, shortness of breath or wheezing Cardio Cardiology: No excessive sweating, chest pain at rest, chest pain with exertion, shortness of breath, dyspnea on exertion, palpitations, orthopnea or lightheadedness Gastro GI: No abdominal pain, change in bowel habits, constipation, diarrhea, vomiting, nausea/dyspepsia or cramping Genitourinary-Female: No burning urination, painful urination, urinary incontinence, urinary frequency, abnormal vaginal bleeding, pelvic pain or other Musc Musculoskeletal: No neck pain, abnormal walking, joint pain, back pain, limited range of motion, numbness or tingling Skin Skin: No redness, dry skin, itching, lesions, wounds or rash Neuro Neurology: No weakness, frequent falls, headache(s), abnormal hearing, abnormal walking, numbness, tingling, abnormal speech, dizziness or memory loss Psych Psychiatric: No change in appetite, No memory loss, No anxiety, No depression, No Thoughts of harming yourself/Others Endo Endocrine: No fatigue, excessive sweating, cold intolerance, increased thirst/drinking, heat intolerance, flushing or increased hunger Aller/Imm Allergy/Immunologic: Positive for throat swelling; no wheezing, itchy eyes, hives or seasonal allergy symptoms Brian/Lymp Hematologic/Lymphatic: No easy bleeding, easy bruising or enlarged lymph nodes Exam Const General: cooperative, comfortable, no acute distress Nutritional Appearance: average body habitus, well nourished Orientation: alert, oriented x3 Limitations: mental status not altered [facility] Head: normal to inspection, normocephalic, atraumatic Ears: external ears normal, TM's normal bilaterally Nose: external nose normal, nasal discharge (clear drainage), mucous membranes and turbinates abnormal erythematous Face and sinus: sinus tenderness ethmoid and maxillary, face symmetric Mouth: lip normal, tongue normal, moist mucous membranes, oral mucosae normal Teeth and gingiva: dentition normal Throat: uvula midline, postnasal drainage, posterior oropharynx abnormal (slight) erythema Eyes General: appearance normal, both eyes and all related structures Neck Lymphatic: no lymphadenopathy noted Resp Effort AND Inspection: normal respiratory effort, able to speak in complete sentences, normal respiratory pattern, symmetric chest movement, no audible wheezes, no cough Auscultation: Bilateral: Clear to Auscultation Cardio Palpation: normal PMI Rate: regular rate Heart Sounds: S1 normal, S2 normal, normal S1 and S2, no click, no gallops, no murmurs, no rubs GI Inspection: normal to inspection Auscultation: normal bowel sounds, no hyperactive bowel sounds, no hypoactive bowel sounds Palpation: soft, no hepatosplenomegaly Neuro General: alert, awake, oriented x3, CN's II-XI intact bilaterally Speech: speech normal Gait: normal gait Motor: muscle tone normal throughout Psych Appearance: grossly normal Mental Status: mental status grossly normal Affect: normal affect Attitude: cooperative Thought Process: normal Assessment AND Plan Problems 1. Acute maxillary sinusitis J01.00 2. Cough R05 Plan Symptoms started 3-4 days ago. She does have a history of chronic sinusitis, however this is an acute presentation. Patient to continue Pascale and Flonase. patient started on Mucinex 1 tablet every 12 hours as needed cold symptoms with full glass of water. Sudafed contraindicated due to patient's hypertension history. Patient instructed and given a [place] pot and encourage fluids. Dr. Shaikh office notified of patient's symptoms and agreed to hold off on antibiotic prescription at this time pending CT that is to be done tomorrow. Patient does have an appointment with ENT later this week as well. Discussed red flag symptoms and when to seek medical attention. Patient to follow-up as previously scheduled or if symptoms worsen. Medications New: dextromethorphan-guaifenesin 60-1,200 mg (Mucinex DM) 1 tab PO Q12H PRN cold symptoms take with full glass of water Plan Detail Follow Up As previously scheduled or sooner and follow-up with the Coding Level of Care Code Off vis,est,level 3 Diagnoses Acute maxillary sinusitis J01.00 Cough R05 03/07/18 1059 <Electronically signed by Price CURRY> Date Price Abraham NP-C Cosigner Signature: Date (if applicable) CC: INTERNAL MEDICINE Observed: 02/06/2018 Status: F Source: KATHY OFFICE VISIT 4:23 PM [facility] [address] [place] [address] [place] [address] OFFICE VISIT Date of Service: 02/06/18 MR#: [id number] Acct: [id number] Name: GLENDA CABRALES Rep #: [id number] : 1985 Provider: Price Abraham NP Age/Sex: 32/F Location: [facility] Status: Signed Intake Vital Signs02/06/18 Height 5 ft 7 in Intake Visit Reasons: acute ear problems, has est appt on 03/26 Chief Complaint: sinus issues. Is patient in pain?: Yes (sinus pressure) Pain scale (1-10): 5 Allergies cefprozil [From Cefzil] Allergy (Verified 12/19/17 08:36) Hives SEASONAL ALLERGIES Allergy (Intermediate, Uncoded 12/19/17 08:37) Throat swelling, runny nose, itchy eyes Medications Levothyroxine [Synthroid] 112 mcg PO DAILY 03/07/16 [History Confirmed 12/19/17] ferrous sulfate 324 mg (65 mg iron) tablet,delayed release 324 mg PO BID tab 11/29/17 [History Confirmed 12/19/17] fexofenadine 180 mg tablet 180 mg PO QDAY 11/29/17 [History Confirmed 12/19/17] lisinopril 10 mg tablet 10 mg PO QDAY #30 tab 11/29/17 [Rx Confirmed 12/19/17] buspirone 5 mg tablet 5 mg PO TID #90 tab 01/18/18 [Rx] blood pressure monitor kit See Dose Instructions .ROUTE .MEDSUPPLY #1 ea 02/06/18 [Rx Confirmed 02/06/18] fluticasone 50 mcg/actuation nasal spray,suspension 2 spray INTRANASAL QDAY #47.4 g 02/06/18 [Rx Confirmed 02/06/18] Is last menstrual period known: Yes PFSH Medical History Headache (Chronic) Iron (Fe) deficiency anemia (Chronic) Hypothyroidism (Chronic) Anxiety (Chronic) Depression (Chronic) Sinusitis (Chronic) Super obesity (Chronic) Left ventricular hypertrophy (Chronic) Surgical History History of tonsillectomy and adenoidectomy (Chronic) History of nasal polypectomy (Chronic) Family History Mother Hypertension Anxiety Thyroid disorder Father Hypertension Social History Smoking Status: Never smoker alcohol intake: current alcohol intake frequency: holidays/special occasions only substance use type: does not use what type of physical activity do you participate in: none HPI HPI Chief Complaint: sinus issues. Details: GLENDA CABRALES, is a 32 F who presents to the office today for complaints of chronic sinus pressure. Patient has a past medical history as listed above Patient states that she deals with chronic sinus pressure but over the last week the pain has been worse. She also complains of ear pressure pain periodically. Patient currently takes Pascale with some relief of the sinus pressure. She has had a history of nasal polyp removal in the past. Patient states she recently started keto diet and states that she has lost 13 pounds over the last 2 weeks. She is concerned that with her recent weight loss her blood pressure will become low since she is on blood pressure medication. The patient otherwise denies any fever, chills, nausea, vomiting, shortness of breath, chest pain or pressure, palpitations, orthopnea, lower extremity edema, syncope or presyncopal episodes. ROS Const Constitutional: Positive for headache(s); no weight change, body ache, chills, fatigue, sleep problems, fever(s), change in appetite, snoring, weakness, frequent falls or excessive sweating Eyes Eyes: No change in vision, eye pain, light sensitivity or blurry vision ENT ENT: Positive for headache(s), sinus pain and sinus pressure; no abnormal hearing, ear pain, tinnitus, nasal congestion, sore throat or neck pain Resp Respiratory: Positive for cough Cough: Yes non-productive; no snoring, shortness of breath or wheezing Cardio Cardiology: No excessive sweating, chest pain at rest, chest pain with exertion, shortness of breath, dyspnea on exertion, palpitations, orthopnea or lightheadedness Gastro GI: No abdominal pain, change in bowel habits, constipation, diarrhea, vomiting, nausea/dyspepsia or cramping Genitourinary-Female: No burning urination, painful urination, urinary incontinence, urinary frequency, abnormal vaginal bleeding, pelvic pain or other Musc Musculoskeletal: No neck pain, abnormal walking, joint pain, back pain, limited range of motion, numbness or tingling Skin Skin: No redness, dry skin, itching, lesions, wounds or rash Neuro Neurology: Positive for headache(s); no weakness, frequent falls, abnormal hearing, abnormal walking, numbness, tingling, abnormal speech, dizziness or memory loss Psych Psychiatric: No change in appetite, No memory loss, No anxiety, No depression, No Thoughts of harming yourself/Others Endo Endocrine: No fatigue, excessive sweating, cold intolerance, increased thirst/drinking, heat intolerance, flushing or increased hunger Aller/Imm Allergy/Immunologic: No wheezing, itchy eyes, hives or seasonal allergy symptoms Brian/Lymp Hematologic/Lymphatic: No easy bleeding, easy bruising or enlarged lymph nodes Exam Const General: cooperative, comfortable, no acute distress Nutritional Appearance: well nourished, obese Orientation: alert, oriented x3 Limitations: mental status not altered HENMT Head: normal to inspection Ears: hearing grossly normal bilaterally Nose: external nose normal, mucous membranes and turbinates abnormal (edematous) erythematous Face and sinus: sinus tenderness Mouth: oral mucosae normal Eyes General: appearance normal, both eyes and all related structures Resp Effort AND Inspection: normal respiratory effort, able to speak in complete sentences, normal respiratory pattern, symmetric chest movement, no audible wheezes, no cough Auscultation: Bilateral: Clear to Auscultation Cardio Palpation: normal PMI Rate: regular rate Heart Sounds: S1 normal, S2 normal, normal S1 and S2, no click, no gallops, no murmurs, no rubs Skin General: no rashes or lesions noted, elasticity normal, turgor normal Lesions: no lesions Rashes: no rashes Neuro General: alert, awake, oriented x3, CN's II-XI intact bilaterally Speech: speech normal Gait: normal gait Motor: muscle tone normal throughout Extrem General: normal to inspection, normal gait, no edema, no pedal edema Psych Appearance: grossly normal Mental Status: mental status grossly normal Affect: normal affect Attitude: cooperative Thought Process: normal Assessment AND Plan 1. Chronic frontal sinusitis J32.1 Plan Patient has ongoing sinus headaches for a couple months. She has a history of nasal polyp removal. Will prescribe Flonase. Continue pascale. Referral made to Dr. Shaikh ENT. Discussed red flag signs and symptoms that would warrant emergency medical care. 2. HTN (hypertension) I10 Plan Per pt she has had significant weight loss (12 lbs) over the last couple weeks. Blood pressure noted in office today 104/76. Will give prescription for patient to obtain blood pressure cuff to monitor her pressure at home. Encouraged to keep blood pressure log and bring log with her to next appointment. If patient becomes hypotensive will consider decreasing lisinopril. Discussed red flag signs and symptoms that would warrant emergency medical care. 3. Super obesity E66.9 Plan Encourage continual weight loss. Discussed weight loss effects on blood pressure. See plan as above. This note was generated with [employer] dictation software. It may contain incorrect words, spelling, and punctuation that were not noted in checking the note before signing. Plan Detail Other Orders Referrals: Other Medications New: blood pressure monitor kit (Blood Pressure KiCheck blood pressure daily for hypertension I t) 10 Follow Up as prev scheduled Coding Level of Care Code Off vis,est,level 3 Diagnoses Chronic frontal sinusitis J32.1 HTN (hypertension) I10 Super obesity E66.9 02/06/18 1623 <Electronically signed by Price CURRY> Date Price CURRY Cosigner Signature: Date (if applicable) CC: INTERNAL MEDICINE Observed: 12/19/2017 Status: F Source: [place] OFFICE VISIT 4:48 PM [facility] Internal [facility] [address] [place] [address] [place] [address] OFFICE VISIT Date of Service: 12/19/17 MR#: [id number] Acct: [id number] Name: GLENDA CABRALES #: [id number] : 1985 Provider: Rizwan Duarte MD Age/Sex: 32/F Location: [facility] [place] Status: Signed Intake Vital Signs12/19/17 Height 5 ft 7 in 12/19/17 Weight: 339 lb 12/19/17 Body Mass Index (BMI) 53.1 12/19/17 Blood Pressure 116/82 Intake Visit Reasons: EST CARE Chief Complaint: Initial visit. - was oing to [facility] Is patient in pain?: No Allergies cefprozil [From Cefzil] Allergy (Verified 12/19/17 08:36) Hives SEASONAL ALLERGIES Allergy (Intermediate, Uncoded 12/19/17 08:37) Throat swelling, runny nose, itchy eyes Medications Levothyroxine [Synthroid] 112 mcg PO DAILY 03/07/16 [History Confirmed 12/19/17] buspirone 5 mg tablet 5 mg PO BID tab 11/28/17 [History Confirmed 12/19/17] ferrous sulfate 324 mg (65 mg iron) tablet,delayed release 324 mg PO BID tab 11/29/17 [History Confirmed 12/19/17] fexofenadine 180 mg tablet 180 mg PO QDAY 11/29/17 [History Confirmed 12/19/17] lisinopril 10 mg tablet 10 mg PO QDAY #30 tab 11/29/17 [Rx Confirmed 12/19/17] PFSH Medical History Headache (Chronic) Iron (Fe) deficiency anemia (Chronic) Hypothyroidism (Chronic) Anxiety (Chronic) Depression (Chronic) Sinusitis (Chronic) Super obesity (Chronic) Left ventricular hypertrophy (Chronic) Surgical History History of tonsillectomy and adenoidectomy (Chronic) History of nasal polypectomy (Chronic) Family History Mother Hypertension Anxiety Thyroid disorder Father Hypertension Social History Smoking Status: Never smoker alcohol intake: current alcohol intake frequency: holidays/special occasions only substance use type: does not use what type of physical activity do you participate in: none HPI HPI Chief Complaint: Initial visit. - was oing to [facility] Details: GLENDA CABRALES, is a 32yo F who presents to the office today to establish care. She has no acute complaints at this time. Recently started on Lisinopril for hypertension and also had an ECHO which was suggestive of LVH thickening. Recent blood work was also suggestive of iron deficiency anemia. She is on iron supplements. She is concerned about vaginal dryness which has been ongoing for some months... She has also had menstrual irregularities. ROS Const Constitutional: No chills, fatigue, fever(s), frequent falls, malaise, weakness, sleep problems or change in appetite Eyes Eyes: No blurry vision, change in vision, double vision, discharge or visual disturbances ENT ENT: No abnormal hearing, ear pain, ear pressure, tinnitus or dizziness/vertigo Resp Respiratory: No cough, shortness of breath or wheezing Cardio Cardiology: No chest pain at rest, chest pain with exertion, shortness of breath, dyspnea on exertion, generalized swelling, irregular heart rhythm, lightheadedness, orthopnea, fast heart rate or palpitations Gastro GI: No abdominal pain, change in bowel habits, constipation, diarrhea, nausea/dyspepsia or vomiting Genitourinary-Female: No difficulty urinating, burning urination, painful urination, urinary incontinence, urinary frequency, urinary urgency, urinary hesitancy, urinary retention, Frequent nighttime urination/ nocturia, sexual problems, genital lesions, abnormal vaginal bleeding, pelvic pain, vaginal dryness, vaginal odor or Vaginal Itching Musc Musculoskeletal: No joint pain, back pain, joint swelling, limited range of motion, muscle weakness, numbness or tingling Skin Skin: No change in skin color, itching, rash or wounds Breast Breast: No breast lump or breast pain Neuro Neurology: No frequent falls, weakness, abnormal hearing, numbness, tingling, unsteady gait/balance, dizziness, loss of vision, memory loss or visual disturbances Psych Psychiatric: No memory loss, No change in appetite, No Thoughts of harming yourself/Others Endo Endocrine: No fatigue, heat intolerance, increased thirst/drinking, increased hunger or increased urination Aller/Imm Allergy/Immunologic: Positive for seasonal allergy symptoms; no wheezing or itchy eyes Brian/Lymp Hematologic/Lymphatic: No easy bleeding, easy bruising or enlarged lymph nodes Exam Const General: cooperative, no acute distress Nutritional Appearance: obese Orientation: alert, awake, oriented x3 HENMT Head: atraumatic, normocephalic, normal to inspection Ears: hearing grossly normal bilaterally Resp Effort AND Inspection: normal respiratory effort, able to speak in complete sentences Auscultation: Bilateral: Clear to Auscultation Cardio Rate: regular rate Rhythm: regular rhythm Heart Sounds: S1 normal, S2 normal GI Inspection: obesity Palpation: soft, no hepatosplenomegaly Musc Musculoskeletal: No muscle weakness Neuro General: alert, awake, oriented x3, moves all extremities, CN's II-XI intact bilaterally Extrem General: no clubbing, cyanosis or edema Psych Appearance: grossly normal Mental Status: mental status grossly normal Mood: congruent mood Affect: normal affect Assessment AND Plan 1. Hypertension I10 Plan Optimally controlled. Continue current medication and life style modifications. Follow up in 3 months. 2. Iron deficiency anemia D50.9 Plan Currently on iron supplements. Repeat CBC in 3 months. Dietary modifications. 3. Morbid obesity E66.01 Plan Patient is motivated to make changes. Referred to the [facility]. Orders Referrals: 4. Vaginal dryness N89.8 Plan Referred to Gynecology. Orders Referrals: 5. Hypothyroidism E03.9 Plan Stable. Continue current medications. Plan Detail Follow Up 3 Months Coding Level of Care Code Off vis,new,level 3 Diagnoses Hypertension I10 Iron deficiency anemia D50.9 Morbid obesity E66.01 Vaginal dryness N89.8 Hypothyroidism E03.9 12/19/17 1648 <Electronically signed by Rizwan Duarte MD> Date Rizwan Duarte MD Cosigner Signature: Date (if applicable) CC: CARDIOLOGY VISIT Observed: 11/29/2017 Status: F Source: [place] REPORT 10:11 AM [facility] REPOSITORY [facility] [address] [place] [address]. [address] [place] [address] OFFICE VISIT Date of Service: 11/29/17 MR#: [id number] Acct: [id number] Name: GLENDA CABRALES Rep #: [id number] : 1985 Provider: Joey Jose MD Age/Sex: 32/F Location: [facility] [place] Status: Signed HPI [facility] Chief Complaint: Initial visit. Details: GLENDA CABRALES, is a 32 F who presents to the office today for an initial visit. She had initially presented to you with dizziness as well as what she thought was sinus problems. She was evaluated and noted to be anemic and hypothyroid and has been under treatment for the above. As part of her dizziness workup she also underwent an echocardiogram which demonstrated preserved ejection fraction estimated to be 60% but with evidence of left ventricular hypertrophy which was moderate. She did have mild mitral and tricuspid regurgitation and she was asked to see the nurse licensed practical for the above. She has not had any chest pain per se no near syncope or syncope. She also underwent a 48 hour Holter which demonstrated an average heart rate of 75 bpm minimum of 47 and a maximum 145 bpm. Occasional ventricular ectopic beats were noted but did not correlate with any significant abnormalities. Her baseline EKG demonstrated normal sinus rhythm with a rate of 65 bpm and left atrial enlargement. Her physical exam today demonstrates clear lung murrell regular rate and rhythm and no pedal edema her diastolic blood pressure is mildly elevated. Intake Vital Signs11/29/17 Height 5 ft 7 in 11/29/17 Weight: 346 lb 11/29/17 Body Mass Index (BMI) 54.1 11/29/17 Blood Pressure 136/84 11/29/17 Respiratory Rate 18 11/29/17 Pulse Rate 72 Intake Visit Reasons: PCP ref'd for dizziness and some chest tightness Allergies cefprozil [From Cefzil] Allergy (Verified 11/29/17 09:42) Hives Medications Levothyroxine [Synthroid] 112 mcg PO DAILY 03/07/16 [History Confirmed 08/14/17] buspirone 5 mg tablet 5 mg PO BID tab 11/28/17 [History Confirmed 11/28/17] ferrous sulfate 324 mg (65 mg iron) tablet,delayed release 324 mg PO BID tab 11/29/17 [History Confirmed 11/29/17] fexofenadine 180 mg tablet 180 mg PO QDAY 11/29/17 [History Confirmed 11/29/17] [facility] Medical History Super obesity (Chronic) Left ventricular hypertrophy (Chronic) Anxiety (Chronic) Depression (Chronic) Hypothyroidism (Chronic) Iron (Fe) deficiency anemia (Chronic) Sinusitis (Chronic) Surgical History History of nasal polypectomy (Chronic) History of tonsillectomy and adenoidectomy (Chronic) Family History Mother Hypertension Social History Smoking Status: Never smoker ROS Const Const: Positive for other; negative for fatigue, weakness, difficulty sleeping, frequent falls, headache(s) or excessive sweating Eyes Eyes: Negative for loss of peripheral vision, transient loss of vision, blurry vision or double vision ENT ENT: Positive for dizziness (Had an episode of lightheadedness and facial numbness 3 months ago.); negative for headache(s), Nosebleed/epistaxis or balance problems Cardio Chest Pain: Yes (tightness with increased stress) Edema: None Muscle aches with walking: None Resp Respiratory: Negative for SOB with activity, SOB at rest, SOB orthopnea\SOB lying down or paroxysmal nocturnal dyspnea GI GI: Negative nausea or heartburn : Negative for hematuria Musc Musc: Negative for muscle aches/ myalgia, muscle weakness, joint pain or balance problems Skin Skin: Negative non-healing lesions, unusual bruising or rash Neuro Neuro: Positive for dizziness (Had an episode of lightheadedness and facial numbness 3 months ago.), lightheadedness and other (Admits to feeling better when hydrated and has been treated for sinusitis); negative for weakness, frequent falls, blurry vision, headache(s), orthostatic symptoms or double vision Brian Hematologic/Lymphatic: Negative for easy bruising Endo Endo: Negative for fatigue, excessive sweating or increased thirst/drinking Psych Psych: Negative for anxiety or depression Allergy Allergy/Immunology: Negative for hives, Negative for rash Cardiology Exam Const Appearance: cooperative, healthy appearing, well developed, well groomed and no acute distress Nutritional Appearance: well nourished and average body habitus Orientation: alert, awake and oriented x3 Head Head: normal to inspection, normocephalic and atraumatic Ears: hearing grossly normal bilaterally and external ears normal Nose: external nose normal, nasal mucous membranes and turbinates normal, nares normal, septum normal, no nasal discharge Face and Sinus: face symmetric Mouth: oral mucosae normal, tongue normal, oropharynx normal and moist mucous membranes Teeth and gingiva: dentition normal Throat: posterior oropharynx normal, tonsils normal and uvula midline Eyes General: appearance normal, both eyes and all related structures Eyelids: eyelids normal Conjunctivae: conjunctivae normal Pupils: PERRL, normal by confrontation and accommodation normal EOM: EOM intact bilaterally Neck Neck: normal visual inspection, trachea midline and no JVD JVD: +5 Carotids: normal carotid upstroke and bounding pulses Chest Chest inspection: normal inspection of the chest, symmetric chest movement and normal respiratory effort Auscultation: Bilateral: Clear to Auscultation Cardio Palpation: normal PMI Rate: regular rate Rhythm: regular rhythm Heart sounds: S1 normal, S2 normal and normal, physiologic split S2; negative rub, gallop or murmur GI GI: normal to inspection, soft, no hepatosplenomegaly and bowel sounds present Neuro General: alert, awake, oriented x3, no focal sensory deficit, gait normal and moves all extremities Skin Skin: no rashes or lesions noted Extremities Pulses: Normal: Right Femoral Pulse, Left Femoral Pulse, Right Dorsalis Pedis Pulse, Left Dorsalis Pedis Pulse, Right Posterior Tibial Pulse, Left Posterior Tibial Pulse, Right Radial Pulse, Left Radial Pulse Lower Extremity Edema: None: Bilateral Musculoskel Musculoskeletal: No joint tenderness Psych Psychological: normal affect Assessment AND Plan 1. Hypertension I10 Plan I suspect she does have hypertension based on her blood pressure numbers as well as had concentric left ventricular hypertrophy my recommendation would be for us to start her on lisinopril 10 mg a day and monitor her blood pressure through your outfit. I do not think that we need any further testing at this particular time. 2. Intermittent lightheadedness R42 Plan I suspect the above is due to a combination of her anemia as well as possibly her blood pressure. This is being corrected and at this time I will suggest that she be watched and can follow-up through your office. I do not think that there is any significant cardiac abnormality and her Holter monitor was rather reassuring. Thank you for allowing me to participate in the care of your patient. Please don't hesitate to call if any issues arise Plan Detail Follow Up prn Coding Level of Care Code Off vis,new,level 3 Diagnoses Hypertension I10 Intermittent lightheadedness R42 Coding Level of Care Code Off vis,new,level 3 Diagnoses Hypertension I10 Intermittent lightheadedness R42 11/29/17 1011 <Electronically signed by Joey Jose MD> Date Joey Jose MD Cosigner Signature: Date (if applicable) CC: Noreen Viera MD ECHOCARDIOGRAM COMPLETE Observed: 10/30/2017 Status: F Source: [place] 4:43 PM [facility] REPOSITORY [facility] Cardi[facility] [place] [address] Echo Complete 10/30/17 0903 MR#: [id number] Acct: [id number] Name: GLENDA CABRALES Rep #: [id number] : 1985 32 From: Joey Jose MD Attending Dr: Noreen Viera MD Status: REG CLI Ordering Dr: Noreen Viera MD Date: 10/30/17 Location: MRI Sex: F C Admitted: Reason For Study: near syncope Procedure This was a 2D Doppler, Color Flow transthoracic echocardiogram. The study was technically difficult. Due to body habitus. Exam performed in department. Left Ventricle Normal LV size. Moderate concentric left ventricular hypertrophy. Left ventricular systolic function is normal. The estimated ejection fraction is 60 %. Normal diastology for age. No regional wall motion abnormalities noted. Right Ventricle Normal RV size. Normal systolic function. Atria The left atrium is mildly enlarged. Normal right atrium. Mitral Valve Normal mitral valve. Mild (1+) eccentric mitral valve insufficiency. Tricuspid Valve Normal tricuspid valve. Mild (1+) tricuspid valve insufficiency. Pulmonary artery systolic pressure is 30 mmHg. Aortic Valve Normal aortic valve. Trisinus/trileaflet aortic valve. Pulmonic Valve The pulmonic valve is not well visualized. Great Vessels Normal aortic root. The pulmonary artery is normal size. Normal inferior vena cava. Pericardium/Pleural No pericardial effusion. MMode/2D Measurements AND Calculations LVIDd: 4.9 cm IVSd: 1.4 cm Ao root diam: 2.7 cm LVIDs: 3.1 cm LVPWd: 1.4 cm LA dimension: 4.8 cm RVDd: 3.1 cm FS: 37.3 % LAV(MOD-bp): 71.4 ml LA A4 area: 22.4 cm2 RA A4 area: 17.6 cm2 LAV(MOD-bp) Indexed: 28.2 ml/m2 LAV(MOD-sp2): 66.5 ml LAV(MOD-sp4): 74.5 ml Time Measurements MV dec time: 0.22 sec Doppler Measurements AND Calculations MV E max sumanth: 105.2 cm/sec Lat Peak E' Sumanth: 12.9 cm/sec Med Peak E' Sumanth: 10.4 cm/sec MV A max sumanth: 70.2 cm/sec E/E' lat: 8.2 E/E' med: 10.1 MV E/A: 1.5 Ao V2 max: 142.0 cm/sec LV V1 max: 123.3 cm/sec PA V2 max: 106.1 cm/sec Ao max P.1 mmHg LV V1 max P.1 mmHg TR max sumanth: 253.7 cm/sec TR max P.8 mmHg Interpretation Summary Normal LV size. Moderate concentric left ventricular hypertrophy. Left ventricular systolic function is normal. The estimated ejection fraction is 60 %. Normal tricuspid valve. Mild (1+) tricuspid valve insufficiency. Pulmonary artery systolic pressure is 30 mmHg. Normal diastology for age. Ordering Physician: Noreen Viera Referring Physician: Noreen Viera Performed By: Jazmin Honeycutt, CHUNCS, RVT 10/30/171641 Date Joey Jose MD CC: Noreen Viera MD Date Dictated: 10/30/17902 Date Transcribed: 10/30/171641 Retort Setter: Signed CBC W/DIFF, AUTOMATED Collected: 10/06/2017 Status: F Source: [place] 8:42 AM [facility] REPOSITORY TYPE CODE TESTS RESULT OUT OF RANGE REFERENCE UNITS LAB L100.1000 4.4-11.0 K/mm3 Normal WBC 6.3 LAB L100.1200 4.2-5.4 M/mm3 Normal RBC 4.39 LAB L100.1300 12.0-15.0 g/dl Low HGB 10.9 LAB L100.1400 37-47 % Low HCT 36.2 LAB L100.1500 81-99 fL Normal MCV 82.5 LAB L100.1600 27.0-32.0 pg Low MCH 24.8 LAB L100.1700 32-36 g/gl Low MCHC 30.1 LAB L100.1810 11.6-14.6 % Normal RDW CV 14.1 LAB L100.1820 35.1-43.9 fl Normal RDW SD 42.3 LAB L100.1900 150-450 K/mm3 Normal PLT 252 LAB L100.2000 6.2-12.0 fl Normal MPV 10.6 LAB L100.2100 47-70 % Normal NEUT% 65.5 LAB L100.2200 19-41 % Normal LY% 25.0 LAB L100.2300 0-10 % Normal MONO% 5.8 LAB L100.2400 0-5 % Normal EO% 2.8 LAB L100.2500 0-1 % Normal BASO% 0.6 LAB L100.2550 0.0-0.9 % Normal IM GRAN % 0.300 Result Comment: IG% - Immature Granulocytes (promyelocytes, myelocytes and metamyelocytes) > 1% indicates that a LEFT SHIFT is Present. LAB L100.2620 2.0-7.7 X10 3/uL Normal Absolute Neut 4.1 LAB L100.2720 0.83-4.51 X10 3/ul Normal Absolute Lymph 1.58 Performed By: #### L100.0100 #### [facility] [address] [place], [address] IRON BINDING Collected: 10/06/2017 Status: F Source: [facility] 8:42 AM [facility] REPOSITORY Order Comment: Is Patient Taking Vitamins or Folic Acid Supplements? N TYPE CODE TESTS RESULT OUT OF RANGE REFERENCE UNITS LAB L503.6075 250-450 ug/dL Normal TIBC 400 Performed By: #### L503.6075, L503.6150, L506.0250 #### [facility] [address] [place], [address] IRON Collected: 10/06/2017 Status: F Source: [place] 8:42 AM [facility] REPOSITORY Order Comment: Is Patient Taking Vitamins or Folic Acid Supplements? N TYPE CODE TESTS RESULT OUT OF RANGE REFERENCE UNITS LAB L503.6150 50-170 ug/dL Low IRON 35 Performed By: #### L503.6075, L503.6150, L506.0250 #### [facility] [address] [place], [address] FOLATES, (FOLIC ACID) Collected: 10/06/2017 Status: F Source: [place] 8:42 AM [facility] REPOSITORY Order Comment: Is Patient Taking Vitamins or Folic Acid Supplements? N TYPE CODE TESTS RESULT OUT OF RANGE REFERENCE UNITS LAB L506.0250 3.1-55.4 ng/mL Normal FOLATES 16.70 Performed By: #### L503.6075, L503.6150, L506.0250 #### [facility] [address] [place], [address] VITAMIN B12 Collected: 10/06/2017 Status: F Source: [place] 8:42 AM [facility] REPOSITORY Order Comment: MISSED TEST ADD TO C112 FROM 10/06/17 TYPE CODE TESTS RESULT OUT OF RANGE REFERENCE UNITS LAB L503.0105 211-911 pg/mL Normal Vitamin B12 278 Performed By: #### L503.0105 #### [facility] [address] [place], [address] CBC AND DIFFERENTIAL Collected: 09/20/2017 Status: F Source: [place] 10:[address] [facility] REPOSITORY TYPE CODE TESTS RESULT OUT OF REFERENCE UNITS RANGE LAB WBC 3.70-11.00 k/uL WBC 9.32 LAB RBC 3.90-5.20 m/uL RBC 4.42 LAB HGB 11.5-15.5 g/dL Low Hemoglobin 11.0 LAB HCT 36.0-46.0 % Hematocrit 37.5 LAB MCV 80.0-100.0 fL MCV 84.8 LAB MCH 26.0-34.0 pG Low MCH 24.9 LAB MCHC 30.5-36.0 g/dL Low MCHC 29.3 LAB RDWCV 11.5-15.0 % RDW-CV 14.3 LAB PLTCT 150-400 k/uL Platelet Count 264 LAB MPV 9.0-12.7 fL MPV 11.6 LAB ANEUT % Neut% 72.0 LAB AANEUT 1.45-7.50 k/uL Abs Neut 6.71 LAB ALYMP % Lymph% 18.6 LAB AALYMP 1.00-4.00 k/uL Abs Lymph 1.73 LAB AMONO % Cascade% 6.0 LAB AAMONO <0.87 k/uL Abs Cascade 0.56 LAB AEOS % Eosin% 2.8 LAB AAEOS <0.46 k/uL Abs Eosin 0.26 LAB ABASO % Baso% 0.6 LAB AABASO <0.11 k/uL Abs Baso 0.06 LAB AUNRBC 0 /100 WBC NRBCs 0.0 LAB ABNRBC <0.01 k/uL Absolute nRBC <0.01 LAB DTYP DTYPE Auto Diff Performed By: #### CBCDIF, CMP, MG1, TSH #### [facility] [address] [place], [place] [address] COMP METABOLIC PANEL Collected: 09/20/2017 Status: F Source: [place] 10:15 AM [facility] REPOSITORY TYPE CODE TESTS RESULT OUT OF REFERENCE UNITS RANGE LAB TP 6.3-8.0 g/dL Protein, Total 6.7 LAB ALB 3.9-4.9 g/dL Low Albumin 3.7 LAB CA 8.5-10.2 mg/dL Calcium, Total 8.9 LAB TBIL 0.2-1.3 mg/dL Bilirubin, Total 0.7 LAB ALKP 32-117 U/L Alkaline Phosphatase 56 LAB AST 13-35 U/L AST 17 LAB GLU 74-99 mg/dL Glucose 96 Result Comment: The [place] Diabetes Association (ADA) provides guidance for cutoff values for fasting glucose and random glucose. The ADA defines fasting as no caloric intake for at least 8 hours. Fas ting plasma glucose results between 100 to 125 mg/dL indicate increased risk for diabetes (prediabetes). Fasting plasma glucose results greater than or equal to 126 mg/dL meet the criteria for diagnosis of diabetes. In the absence of unequivocal hyperglycemia, results should be confirmed by repeat testing. In a patient with classic symptoms of hyperglycemia or hyperglycemic crisis, random plasma glucose results greater than or equal to 200 mg/dL meet the criteria for diagnosis of diabetes. Reference: Standards of Medical Care in Diabetes 2016, [place] [employer] Association. Diabetes Care. 2016.39(Suppl 1). LAB BUN 7-21 mg/dL BUN 11 LAB CRET 0.58-0.96 mg/dL Creatinine 0.66 LAB NA 136-144 mmol/L Sodium 137 LAB K 3.7-5.1 mmol/L Potassium 4.2 LAB CL 97-105 mmol/L Chloride 104 LAB CO2 22-30 mmol/L CO2 24 LAB AGAP 9-18 mmol/L Anion Gap 9 LAB ALT 7-38 U/L ALT 16 LAB GFRAA eGFR- Amer. >60 LAB GFRNAA . eGFR-All Other Races >60 Result Comment: eGFR (Estimated GFR) Units of measure: mL/min/1.73 meters squared eGFR is derived from the reexpressed MDRD Study equation using the following parameters: serum creatinine, age, gender and race. The creatinine assay has been calibrated to be traceable to IDMS. An eGFR <60 mL/min/1.73m2 for >3 months is consistent with chronic kidney disease. Refer to KDOQI guidelines for clinical interpretation. In patients with unstable renal function, e.g. those with acute kidney injury, the eGFR may not accurately reflect actual GFR. Performed By: #### CBCDIF, CMP, MG1, TSH #### [facility] [address] [place] [address] MAGNESIUM Collected: 09/20/2017 Status: F Source: [place] 10:[address] [facility] REPOSITORY TYPE CODE TESTS RESULT OUT OF REFERENCE UNITS RANGE LAB MG 1.7-2.3 mg/dL Magnesium 1.8 Performed By: #### CBCDIF, CMP, MG1, TSH #### [facility] [address] [place] [address] TSH Collected: 09/20/2017 Status: F Source: [place] 10:[address] [facility] REPOSITORY TYPE CODE TESTS RESULT OUT OF RANGE REFERENCE UNITS LAB TSH 0.400-5.500 uU/mL TSH 2.260 Result Comment: If the patient is , TSH reference range varies by gestational period: First Trimester 0.100-2.500 uU/mL Second Trimester 0.200-3.000 uU/mL Third Trimester 0.300-3.000 uU/mL References: 1. De Alejo L, Christian M, Rayo EK, et al. Management of Thyroid Dysfunction during and : An Endocrine Society Clinical Practice Guideline. J Clin Endocrinol Metab, 2012:97:0562-0086. 2. Eulalio POSADA. Overview of thyroid disease in . UpToDate. 2016. Accessed on January 15, 2016. Performed By: #### CBCDIF, CMP, MG1, TSH #### [facility] [address] [place], [place] [address] PROGRESS Observed: 09/20/2017 Status: COMPLETED Source: [place] 9:08 AM [facility] REPOSITORY HNO ID: [id number] Author: Noreen Viera Service: (none) Author Type: Physician Type: Progress Notes Filed: 09/20/2017 10:08 AM Note Text: Patient presents with: Dizziness Sinusitis Nausea HPI: Patient presents today for office visit for acute visit. Nursing Notes: Cici Abrams Ma 09/20/2017 8:44 AM Signed ENT: Patient complains of sinus pressure. Duration: one month Fever: No. Headache: Yes. Sore throat: Yes. Ear pain: Right, clogged. Nasal drainage: Yes. Cough: slight. Shortness of breath: sometimes. Nausea: Yes. Vomiting: No. Diarrhea: No. Previous treatment: No. Pt woke up yesterday morning feeling dizzy. It lasted a couple hours. Pt has right sided facial numbness intermittently for the past month. Also pt is waking up in the morning feeling shaky, nausea, and weak. She has been checking blood sugars, and normally in the 100's dizziness just started yesterday. Has had numbness in face on and off for a month. Has had some lightheaded spells on and off for the last month and had checked sugars but they have been ok. Rare headache. No head trauma. Has nasal congestion. No numbness or weakness on arms or legs. Had tooth infection recently but that was on the other side. Denies chest pain or palpitations. No edema. Her chest feels a little tight though. She has woken up the last few mornings and her chest feels weird and she feels hot. Wondered if she was having anxiety. She is concerned because her mother had a prolonged QT. She has backed her celexa down to half a pill. [place] tired on 20 mg. Does feel a little better. [place] like she could pass out yesterday but no syncope. Gets lightheaded when getting up. No dizziness when laying down. MEDICATIONS: Current Outpatient Prescriptions: levothyroxine (SYNTHROID) 125 mcg tablet Take 1 tablet by mouth once daily. citalopram (CELEXA) 20 mg tablet Take 1 tablet by mouth once daily. No current facility-administered medications for this visit. ALLERGIES: ALLERGIES Allergen Reactions - Cefzil [Cefprozil] Hives - Seasonal Allergies Other: See Comments Watery eyes nasal drainage PAST MEDICAL HISTORY Diagnosis Date - Anxiety - Depression - History of chicken pox - Hypoactive thyroid PAST SURGICAL HISTORY Procedure Laterality Date - EXCISION OF NASAL POLYPS SIMPLE - REMOVE TONSIL AND ADENOI UNDER AGE 14 FAMILY HISTORY Problem Relation Age of Onset - Thyroid Mother hypothyroid - Hypertension Mother all of mothers side - anxiety [Other] [OTHER] Mother - anxiety [Other] [OTHER] Sister - Breast Cancer Other great maternal aunt, paternal great grandmother - Diabetes maternal great aunt and uncle Social History Marital status: Single Spouse name: Years of education: Number of children: Social History Main Topics Smoking status: Never Smoker Smokeless status: Never Used Alcohol use: Yes Comment: ocassionally Drug use: No Sexual activity: Yes Partners with: Male control/protection: None Reviewed current medications, allergies, past medical history, surgical history, family history and social history today. REVIEW OF SYSTEMS All other reviewed and negative other than HPI. HEALTH MAINTENANCE: Reviewed health maintenance issues today and recommended the following in detail. VITALS: BP 118/62 Pulse 66 Temp 36.3 ?C (97.3 ?F) (Tympanic) SpO2 98% See nursing note for orthostatics. Last 4 Encounter Wt Readings: Date: Wt: 09/01/2017 156 kg (344 lb) 04/07/2016 152 kg (335 lb) 02/02/2015 145.6 kg (321 lb) 12/31/2014 144.7 kg (319 lb) PHYSICAL EXAMINATION: General appearance: Well appearing, alert, in no acute distress, well-hydrated, well nourished. Skin: Skin color, texture, turgor normal, no suspicious rashes or lesions Head: Normocephalic, no masses, lesions, tenderness or abnormalities Eyes: Anicteric sclera. Pupils are equally round and reactive to light. Extraocular movements are intact. No nystagmus. Ears: External ears normal, canals clear Nose/Sinuses: Nares normal, septum midline, mucosa normal, no drainage or sinus tenderness Oropharynx: Lips, mucosa, and tongue normal, teeth and gums normal, oropharynx normal Neck: Supple, no adenopathy; thyroid symmetric, normal size, no bruits Lungs: Lungs clear to auscultation. No wheezing, rhonchi, rales Heart: RRR without murmur, gallop, or rubs. No ectopy Abdomen: Normal abdominal exam, Abdomen soft, non-tender. Bowel sounds normal. No masses, organomegaly Extremities: No deformities, edema, skin discoloration, clubbing or cyanosis. Good capillary refill. Neuro: Gait normal. Reflexes normal and symmetric. Sensation grossly intact. ASSESSMENT/PLAN: 1. Numbness - ICD9: 782.0, ICD10: R20.0 (primary diagnosis) - do mri to rule out significant laborer aquatic life cause for symptoms. Call if worsens. - MRI BRAIN WO/W IVCON 2. Lightheaded - ICD9: 780.4, ICD10: R42 - As above. - ECG COMPLETE W INTERPRETATION - CBC + DIFF - COMP METABOLIC PANEL - MRI BRAIN WO/W IVCON 3. Chest discomfort - ICD9: 786.59, ICD10: R07.89 - holter and echo 4. Vertigo - ICD9: 780.4, ICD10: R42 - as above. - ECG COMPLETE W INTERPRETATION - MRI BRAIN WO/W IVCON 5. Bacterial sinusitis - ICD9: 473.9, 041.9, ICD10: J32.9, B96.89 - Supportive care with plenty of fluids, rest, and analgesia prn. - Follow up in one week if symptoms persist or worsen. - DOXYCYCLINE MONOHYDRATE 100 MG TABLET 6. Anxiety - ICD9: 300.00, ICD10: F41.9 - stop celexa with QT. Switch to buspar. Follow up in two weeks. - HYDROXYZINE PAMOATE 25 MG CAPSULE 7. Prolonged Q-T interval on ECG - ICD9: 794.31, ICD10: R94.31 - as above. Stop celexa. - CBC + DIFF - COMP METABOLIC PANEL - MAGNESIUM BLD 8. Near syncope - ICD9: 780.2, ICD10: R55 - as above. Red flags for re-assessment reviewed with patient in detail. - HOLTER MONITOR 24 HOUR - ECHO - MRI BRAIN WO/W IVCON Noreen Viera MD RTO in next appt next month and prn. TSH Collected: 09/01/2017 Status: F Source: [place] 9:23 AM [facility] REPOSITORY TYPE CODE TESTS RESULT OUT OF RANGE REFERENCE UNITS LAB TSH 0.400-5.500 uU/mL High TSH 12.190 Result Comment: If the patient is , TSH reference range varies by gestational period: First Trimester 0.100-2.500 uU/mL Second Trimester 0.200-3.000 uU/mL Third Trimester 0.300-3.000 uU/mL References: 1. Whitlock L, Christian M, Rayo EK, et al. Management of Thyroid Dysfunction during and : An Endocrine Society Clinical Practice Guideline. J Clin Endocrinol Metab, 2012:97:5235-8274. 2. Eulalio POSADA. Overview of thyroid disease in . UpToDate. 2016. Accessed on January 15, 2016. Performed By: #### TSH, LIPB #### [facility] [address] [place], [place] [address] LIPID PANEL, BASIC Collected: 09/01/2017 Status: F Source: [place] 9:[address] [facility] REPOSITORY TYPE CODE TESTS RESULT OUT OF REFERENCE UNITS RANGE LAB CHOL <200 mg/dL Cholesterol 121 Result Comment: <200 mg/dL, Desirable 200-239 mg/dL, Borderline high >239 mg/dL, High LAB TRIGLY <150 mg/dL Triglyceride 46 Result Comment: <150 mg/dL, Normal 150-199 mg/dL, Borderline high 200-499 mg/dL, High >499 mg/dL, Very high LAB HDL >39 mg/dL HDL-Cholesterol Low 36 Result Comment: 40-59 mg/dL, Acceptable >59 mg/dL, High: Negative risk factor for coronary heart disease <40 mg/dL, Low: Positive risk factor for coronary heart disease LAB LDL <100 mg/dL LDL-Cholesterol 76 Result Comment: <100 mg/dL, Optimal 100-129 mg/dL, Near optimal/above optimal 130-159 mg/dL, Borderline high 160-189 mg/dL, High >189 mg/dL, Very high Secondary prevention optimal LDL Cholesterol levels are recommended to be < 70 mg/dL LAB NONHDL <130 mg/dL Non HDL Cholesterol 85 Result Comment: <130 mg/dL, Optimal 130-159 mg/dL, Near optimal/above optimal 160-189 mg/dL, Borderline high 190-219 mg/dL, High >219 mg/dL, Very high Secondary prevention optimal non HDL Cholesterol levels are recommended to be < 100 mg/dL LAB FT hrs Fasting Time 12 LAB VLDL <30 mg/dL VLDL Cholesterol 9 LAB TCHDL <5.10 TC:HDL Ratio 3.36 LAB LDLHDL <2.54 LDL:HDL Ratio 2.11 Result Comment: Reference: 1. National Cholesterol Education Program ATP III Guideline At-A-Glance Quick Desk Reference: National Heart, Lung, and Blood [place]. National Institutes of Health. 2001: NIH Publication No. 01-3305. 2. An International Atherosclerosis Society position paper: global recommendations for the management of dyslipidemia: executive summary, Atherosclerosis. 2014: 232(2):410-413. Performed By: #### TSH, LIPB #### [facility] [address] [id number] PROGRESS Observed: 09/01/2017 Status: COMPLETED Source: [place] 8:48 AM [facility] [place] REPOSITORY HNO ID: [id number] Author: Noreen Viera Service: (none) Author Type: Physician Type: Progress Notes Filed: 09/01/2017 9:05 AM Note Text: Patient presents with: Recheck HPI: Patient presents today for office visit for follow up. HYPOTHYROID: Patient is compliant with medications: Was off. Went to er and has been back on meds but 112 Patient has changes in energy: Yes Psych: she has not really been using any lorazepam. Is using [facility] Wants to get back on something prescription. Some depression. Worries a lot. No suicidal ideation. Dental: dentist prescribed clinda for tooth infection. Wanted to make sure was ok with her current meds. Using advil prn. She is using a lot of it. Wants to know if there is something else we can try. MEDICATIONS: Current Outpatient Prescriptions: levothyroxine (SYNTHROID) 125 mcg tablet Take 1 tablet by mouth daily before breakfast. LORazepam (ATIVAN) 0.5 mg tab Take 1 tablet by mouth twice daily. ALBUTEROL INHALATION Inhale as instructed. No current facility-administered medications for this visit. ALLERGIES: ALLERGIES Allergen Reactions - Cefzil [Cefprozil] Hives - Seasonal Allergies Other: See Comments Watery eyes nasal drainage PAST MEDICAL HISTORY Diagnosis Date - Anxiety - Depression - History of chicken pox - Hypoactive thyroid PAST SURGICAL HISTORY Procedure Laterality Date - EXCISION OF NASAL POLYPS SIMPLE - REMOVE TONSIL AND ADENOI UNDER AGE 14 FAMILY HISTORY Problem Relation Age of Onset - Thyroid Mother hypothyroid - Hypertension Mother all of mothers side - anxiety [Other] [OTHER] Mother - anxiety [Other] [OTHER] Sister - Breast Cancer Other great maternal aunt, paternal great grandmother - Diabetes maternal great aunt and uncle Social History Marital status: Single Spouse name: Years of education: Number of children: Social History Main Topics Smoking status: Never Smoker Smokeless status: Never Used Alcohol use: Yes Comment: ocassionally Drug use: No Sexual activity: Yes Partners with: Male control/protection: None Reviewed current medications, allergies, past medical history, surgical history, family history and social history today. REVIEW OF SYSTEMS All other reviewed and negative other than HPI. HEALTH MAINTENANCE: Reviewed health maintenance issues today and recommended the following in detail. VITALS: BP 130/80 (BP Site: Left Arm, BP Position: Sitting, BP Cuff Size: Large Adult) Pulse 68 Temp 36.9 ?C (98.4 ?F) (Left Tympanic) Resp 12 Wt (!) 156 kg (344 lb) BMI 53.88 kg/m2 Last 4 Encounter Wt Readings: Date: Wt: 09/01/2017 156 kg (344 lb) 04/07/2016 152 kg (335 lb) 02/02/2015 145.6 kg (321 lb) 12/31/2014 144.7 kg (319 lb) PHYSICAL EXAMINATION: General appearance: Well appearing, alert, in no acute distress, well-hydrated, well nourished. Skin: Skin color, texture, turgor normal, no suspicious rashes or lesions Head: Normocephalic, no masses, lesions, tenderness or abnormalities Neck: Supple, no adenopathy; thyroid symmetric, normal size, no bruits Lungs: Lungs clear to auscultation. No wheezing, rhonchi, rales Heart: RRR without murmur, gallop, or rubs. No ectopy Abdomen: Normal abdominal exam, Abdomen soft, non-tender. Bowel sounds normal. No masses, organomegaly Extremities: No deformities, edema, skin discoloration, clubbing or cyanosis. Good capillary refill. ASSESSMENT/PLAN: 1. Hypothyroidism, unspecified type - ICD9: 244.9, ICD10: E03.9 (primary diagnosis) - Instructed patient on importance of taking on an empty stomach either first thing in the morning or at bedtime. Check labs. - LEVOTHYROXINE 112 MCG TABLET - TSH BLD - LIPID PANEL BASIC 2. Anxiety - ICD9: 300.00, ICD10: F41.9 - use meds as needed. - LORAZEPAM 0.5 MG TABLET - start celexa 3. Dental implant pain, initial encounter - ICD9: 996.79, ICD10: T85.848A - use meds. - MELOXICAM 15 MG TABLET Noreen Viera MD RTO in one month and prn. 12 LEAD ELECTROCARDIOGRAM Observed: 08/17/2017 Status: F Source: [place] 11:43 AM [facility] REPOSITORY [facility] Cardiovascular Services [address] [place] [address] 12 Lead EKG 08/14/172125 MR#: [id number] Acct: [id number] Name: GLENDA CABRALES Rep #: [id number] : 1985 32 From: Chas Alejandro MD Attending Dr: Status: DEP ER Ordering Dr: Christine Campoverde MD Date: 08/14/17 Location: ED Sex: F C Admitted: Test Reason : SOB Blood Pressure : / mmHG Vent. Rate : 072 BPM Atrial Rate : 072 BPM P-R Int : 140 ms QRS Dur : 080 ms QT Int : 450 ms P-R-T Axes : 055 006 037 degrees QTc Int : 492 ms Normal sinus rhythm Low voltage QRS Borderline ECG Confirmed by CHAS ALEJANDRO ([id number]), editor farm journal JOHN ALVAREZ ([id number]) on 08/17/2017 11:43:14 AM Referred By: SUKUMAR Confirmed By:CHAS ALEJANDRO 08/17/17 1143 Date Chas Alejandro MD CC: DEFINED NOT Signed EMERGENCY DEPARTMENT Observed: 08/15/2017 Status: F Source: [place] SUMMARY 2:22 AM [facility] REPOSITORY [facility] Medical Records Department [address] [place] [address] Emergency Department Summary 08/14/17 2313 MR#: [id number] Acct: [id number] Name: GLENDA CABRALES Rep #: [id number] : 1985 32 From: Christine Campoverde MD PCP: NOT, DEFINED Status: DEP ER - ER Visit Summary Date of Service: 08/14/17 Chief Complaint: Cough and cold symptoms History of Present Illness: The patient is a 32 F reports chest pressure with cough and sinus pressure for the past 3-4 days. Patient states she felt warm but never measured a fever. She reports having 2 panic attacks last night. Patient admits she has not taken her thyroid medication in at least 2 or 3 months. She is currently waiting a new insurance card so she can establish care with a new primary care physician. Physical Examination: Vital signs are unremarkable. Patient sitting upright in bed no acute distress. Head neck examination is unremarkable. Heart is regular rate and rhythm. Lungs clear. Abdomen is soft nontender. Test Results: EKG is sinus at 72 with no sign of acute ischemia. Two-view chest x-ray is normal. CBC and chemistry studies are unremarkable. Troponin is less than 0.02. test negative. TSH returns at 34.3. Emergency Department Course and Treatment: Patient was given a DuoNeb treatment here. She was given a dose of her normal Synthroid and a prescription for 30 day supply was written. I discussed with her the importance of taking her thyroid medications. She is referred to a local physician to establish primary care. She requested something for anxiety and panic attacks, stating that she used to be on Zoloft. I advised her to give her a home pack of Vistaril, but do not feel comfortable writing these more long- term medications. She voices her understanding. Treatment Plan: [] Disposition: Discharge Impression: 1. Viral URI 2. Hypothyroidism with medication noncompliance This note was generated with Plynkedation software. It may contain incorrect words, spelling, and punctuation that were not noted in review of the chart prior to signing ED Disposition - Plan for ED Patient: Disposition: Home or Assisted Living Chief Complaint: Cold Sx Instructions: ED Hypothyroidism, ED URI Viral Prescriptions: Levothyroxine [Synthroid] 112 mcg PO DAILY #30 tablet Referrals: Rizwan Duarte MD [STAFF PHYSICIAN] - As soon as possible What to do if you have Problems For any increased pain, shortness of breath, bleeding, nausea or vomiting, chest pain, or any unexpected problems, contact your Primary Care Provider. Call [facility] ([phone]) or report to the closest Emergency Room. Call 911 if necessary. 08/15/17221 <Electronically signed by Christine Campoverde MD> Date Christine Campoverde MD Cosigner Signature (If Indicated): Date CC: DEFINED NOT DISCHARGE INSTRUCTION Observed: 08/14/2017 Status: F Source: [place] 11:15 PM [facility] REPOSITORY [facility] Medical Records Department [address] [place] [id number] Discharge Instruction 08/14/172313 MR#: [id number] Acct: [id number] Name: GLENDA CABRALES Rep #: [id number] : 1985 32 From: Christine Campoverde MD PCP: NOT, DEFINED Status: REG ER ED Disposition - Plan for ED Patient: Disposition: Home or Assisted Living Chief Complaint: Cold Sx Instructions: ED URI Viral, ED Hypothyroidism Prescriptions: Levothyroxine [Synthroid] 112 mcg PO DAILY #30 tablet Referrals: Rizwan Duarte MD [STAFF PHYSICIAN] - As soon as possible What to do if you have Problems For any increased pain, shortness of breath, bleeding, nausea or vomiting, chest pain, or any unexpected problems, contact your Primary Care Provider. Call [facility] ([phone]) or report to the closest Emergency Room. Call 911 if necessary. 08/14/172314 <Electronically signed by Christine Campoverde MD> Date Christine Campoverde MD Cosigner Signature (If Indicated): Date CC: DEFINED NOT CBC W/DIFF, AUTOMATED Collected: 08/14/2017 Status: F Source: [place] 9:45 PM [facility] REPOSITORY TYPE CODE TESTS RESULT OUT OF RANGE REFERENCE UNITS LAB L100.1000 4.4-11.0 K/mm3 Normal WBC 6.8 LAB L100.1200 4.2-5.4 M/mm3 Normal RBC 4.60 LAB L100.1300 12.0-15.0 g/dl Low HGB 11.3 LAB L100.1400 37-47 % Normal HCT 37.8 LAB L100.1500 81-99 fL Normal MCV 82.2 LAB L100.1600 27.0-32.0 pg Low MCH 24.6 LAB L100.1700 32-36 g/gl Low MCHC 29.9 LAB L100.1810 11.6-14.6 % Normal RDW CV 14.4 LAB L100.1820 35.1-43.9 fl Normal RDW SD 43.2 LAB L100.1900 150-450 K/mm3 Normal PLT 208 LAB L100.2000 6.2-12.0 fl Normal MPV 10.3 LAB L100.2100 47-70 % Normal NEUT% 64.9 LAB L100.2200 19-41 % Normal LY% 22.2 LAB L100.2300 0-10 % High MONO% 11.0 LAB L100.2400 0-5 % Normal EO% 1.3 LAB L100.2500 0-1 % Normal BASO% 0.3 LAB L100.2550 0.0-0.9 % Normal IM GRAN % 0.300 Result Comment: IG% - Immature Granulocytes (promyelocytes, myelocytes and metamyelocytes) > 1% indicates that a LEFT SHIFT is Present. LAB L100.2620 2.0-7.7 X10 3/uL Normal Absolute Neut 4.4 LAB L100.2720 0.83-4.51 X10 3/ul Normal Absolute Lymph 1.51 Performed By: #### L100.0100 #### [facility] [place] [place], [address] ,SERUM,HCG QUALI. Collected: Status: F Source: [place] 08/14/2017 9:45 PM [facility] REPOSITORY TYPE CODE TESTS RESULT OUT OF REFERENCE UNITS RANGE LAB L700.7000 0-9 Nonpreg Negative Normal HCGSQUAL NEGATIVE LAB L700.6700 =>Qualitative mIU/mL Normal HCG Qual < 1 triggr Performed By: #### L700.6800 #### [facility] [address] [place], [place], [address] BASIC METABOLIC Collected: 08/14/2017 Status: F Source: [place] PROFILE (BMP) 9:45 PM [facility] REPOSITORY Order Comment: 'TROP' Serial specimen #1, #2, #3, or #4: 1 TYPE CODE TESTS RESULT OUT OF RANGE REFERENCE UNITS LAB L501.0100 70-110 mg/dL Normal GLU 84 LAB L501.1000 7-18 mg/dL Normal BUN 11 LAB L501.1100 0.55-1.02 mg/dL Normal 0.80 CREAT,SERUM Result Comment: The validity of the calculated GFR AND GFRAA in patients over 70 years has not been determined. Clinical correlation is essential. LAB L501.1110 >60 mL/min Normal EST GFR 89 Result Comment: Non- GFR Calc LAB L501.1115 >60 mL/min Normal EST GFR - AA 108 Result Comment: GFR Calc LAB L501.1255 ml/min Normal Estimated CRCL 99.99 LAB L501.1300 10-20 RATIO Normal BUN/CRE 13.7 LAB L501.2200 8.5-10 mg/dL Normal .1 CA 8.7 LAB L501.5300 136-14 mmol/L Normal 5 NA 141 LAB L501.5600 3.5-5. mmol/L Normal 1 K 4.0 LAB L501.5900 98-107 mmol/L Normal CL 107 LAB L501.6100 21.0-3 mmol/L Normal 2.0 CO2 26.0 LAB L501.6200 5-15 Normal GAP 8 Performed By: #### L500.2500, L501.4010, L501.9520 #### [facility] [address] [place], [place], [address] TROPONIN-I Collected: 08/14/2017 Status: F Source: [place] 9:45 PM [facility] REPOSITORY Order Comment: 'TROP' Serial specimen #1, #2, #3, or #4: 1 TYPE CODE TESTS RESULT OUT OF RANGE REFERENCE UNITS LAB L501.4010 <0.06 ng/mL Normal < 0.02 TROPONIN-I Result Comment: TROPONIN-I EXPECTED VALUES <0.05 NEGATIVE 0.06 - 0.59 AT RISK OF TN > OR = 0.60 SUGGEST TN Performed By: #### L500.2500, L501.4010, L501.9520 #### [facility] [address] [place], [place], [id number] THYROID STIM HORMONE Collected: 08/14/2017 Status: F Source: LAUREL (TSH) 9:45 PM [facility] REPOSITORY Order Comment: 'TROP' Serial specimen #1, #2, #3, or #4: 1 TYPE CODE TESTS RESULT OUT OF RANGE REFERENCE UNITS LAB L501.9520 0.358-3.74 uIU/mL High TSH 34.30 Performed By: #### L500.2500, L501.4010, L501.9520 #### [facility] [address] [place], [place], [id number] CHEST PA AND LATERAL Observed: 08/14/2017 Status: F Source: LAUREL 9:07 PM [facility] REPOSITORY [facility] Imaging Services [address] [place] [address] Chest PA and Lateral MR#: [id number] Acct: [id number] Name: GLENDA CABRALES Rep #: [id number] : 1985 F 32 From: Braeden Chandler MD PCP: NOT, DEFINED Status: REG ER Study: Chest PA and Lateral Date of Exam: 08/14/17 Exam# [id number] Ordering Dr: Christine Campoverde MD STUDY: X-RAY CHEST REASON FOR EXAM: Female, 32 years old. Cough TECHNIQUE: Frontal and lateral views of the chest. COMPARISON: None. FINDINGS: The lungs are clear and expanded. There is no demonstrated pleural abnormality. Normal size heart. Normal mediastinum and major. Normal visualized pulmonary arteries. Normal visualized aortic arch and descending thoracic aorta. Normal visualized thoracic spine. Normal visualized ribs, clavicles, and shoulders. There is no demonstrated abnormality of the visualized soft tissue structures of the upper abdomen. RAD/Chest PA and Lateral IMPRESSION: Normal x-ray examination of the chest. Electronically Signed: Braeden Chandler MD at 22:18 EST , Service support , CC: DEFINED NOT; Christine Campoverde MD Retort Setter: Signed ALLERGIES ALLERGIES DATE TYPE / CODE NAME / CODE REACTION SEVERITY SOURCE 07/12/2018 Drug cefprozil/F0060 Hives Unknown Kathy Allergy/[id number](S 74000(RXNORM) [facility] NOMED CT) Hospital Repository 07/12/2018 Miscellaneous SEASONAL Throat MO Harvey Allergy/968144302(S ALLERGIES swelling, [facility] NOMED CT) runny nose, Hospital itchy eyes Repository 08/14/2017 Drug No Known Unknown Harvey Allergy/853932972(S [facility] Repository 08/04/2014 DRUG CEFPROZIL HIVES [place] INGREDI/504828670(S Clinic Main NOMED CT) [place] Repository 10/29/2012 Environ/[id number](S SEASONAL OTHER: [facility] Repository ENCOUNTERS ENCOUNTERS ADMIT/DISCHARGE ACCOUNT ADMITTING ENCOUNTER LOCATION SOURCE NUMBER CLASS 07/12/2018/07/12/20 [id number] Ambulatory BMSBuilding:B Harvey 18 [place] Repository 07/07/2018 [id number] Ambulatory [facility] ing:LAB Repository 05/10/2018/05/10/20 [id number] Ambulatory BMSBuilding:B Kathy 18 [place] Repository 03/23/2018/03/23/20 [id number] Ambulatory [address] HospitalBuild Hospital ing:SDC Repository 03/07/2018 [id number] Ambulatory [facility] HospitalBuild Hospital ing:CT Repository 03/06/2018/03/06/20 [id number] Ambulatory BMSBuilding:Dylan Villela [place] Repository 02/06/2018/02/07/20 [id number] Ambulatory BMSBuilding:Dylan Chavez 18 MS.[facility] Repository 12/19/2017/12/20/19 [id number] Ambulatory BMSBuilding:Dylan Chavez 18 [place] Repository 11/29/2017/11/30/19 [id number] Ambulatory BMSBuilding:Dylan Villela [facility] Repository 11/28/2017 [id number] Ambulatory BMSBuilding:Dylan Chavez [facility] Repository 11/28/2017 [id number] Ambulatory BMSBuilding:Dylan Chavez [facility] Repository 10/30/2017 [id number] Ambulatory BMSBuilding:[facility] Repository 10/30/2017 [id number] Ambulatory [facility] HospitalBuild Hospital ing:MRI Repository 10/06/2017 [id number] Ambulatory [facility] HospitalBuild Hospital ing:LAB Repository 10/05/2017 [id number] Ambulatory [facility] Repository 09/21/2017 [id number] Ambulatory BMSBuilding:[facility] Repository 09/21/2017 [id number] Ambulatory [facility] HospitalBuild Hospital ing:PSN Repository 09/20/2017/09/20/19 [id number] Ambulatory [address] Repository 09/20/2017/09/22/19 [id number] Ambulatory [address] Repository 09/20/2017/09/20/19 [id number] Ambulatory [address] Repository 09/01/2017/09/01/19 [id number] Ambulatory [address] Repository 09/01/2017/09/29/19 [id number] Ambulatory [address] Repository 08/14/2017/08/14/19 [id number] Emergency Harvey Harvey 18 [facility] ing:ED Repository PAYERS PAYERS ENCOUNTER GUARANTOR PAYER SUBSCRIBER SOURCE 07/12/2018 GLENDA T Primary GLENDA T Kathy [id number] N Insurance:CARESOURCE KERONDOB: [facility] [id number] [address]Pbu: Number: Repository [id number] (HP) Date:7736-20-66UW [address] [address]OS: 07/12/2018 Secondary NOT GIVENUNK Harvey Insurance:SELF PAY [facility] Number: Effective Repository Date:2018-06-07 07/07/2018 GLENDA T Primary GLENDA T Harvey [id number] N Insurance:CARESOURCE KERONDOB: [facility] [id number] [place] [address]Nns: Number: Repository [id number] (HP) Date:5819-72-33LL [address] [address]HV: 07/07/2018 Secondary NOT GIVENUNK Kathy Insurance:SELF PAY [facility] Number: Effective Repository Date:2018-06-29 05/10/2018 GLENDA T Primary GLENDA T Harvey [id number] N Insurance:CARESOLIANET GUERRAB: [facility] [id number] [place] [address]Mpl: Number: Repository [id number] (HP) Date:9496-56-83XB [address] [address]BF: 05/10/2018 Secondary NOT GIVENUNK Kathy Insurance:SELF PAY [facility] Number: Effective Repository Date:2018-05-10 03/23/2018 GLENDA T Primary GLENDA T Kathy [id number] W Insurance:CARESOURCE MARIB: [facility] [id number] Number: Repository [id number]: 330 [id number] [phone] (HP) Date:7681-16-45AS [address] [place] [address]KO: 03/23/2018 Secondary NOT GIVENUNK Kathy Insurance:SELF PAY [facility] Number: Effective Repository Date:2018-03-15 03/07/2018 GLENDA T Primary GLENDA T Harvey [id number] W Insurance:CARESOURCE KERONDOB: [place] [facility] [id number] Number: Repository [address]Qpo: 330 [id number] [phone] () Date:7004-26-34CG [address] [address]FQ: 03/07/2018 Secondary NOT GIVENUNK Kathy Insurance:SELF PAY [facility] Number: Effective Repository Date:2018-02-21 03/06/2018 GLENDA T Primary GLENDA T Kathy [id number] W Insurance:CARESOURCE MARIB: [facility] [place] [facility] [id number] Number: Repository [address]Khm: 330 [id number] [phone] () Date:9599-37-99SL [address] [address]CE: 03/06/2018 Secondary NOT GIVENUNK Harvey Insurance:SELF PAY [facility] Number: Effective Repository Date:2018-03-06 02/06/2018 GLENDA T Primary GLENDA T Kathy [id number] W Insurance:CARESOURCE MARIB: [facility] [place] [facility] [id number] Number: Repository [id number]: 330 [id number] [phone] () Date:9825-13-81NS [address] [address]HC: 02/06/2018 Secondary NOT GIVENUNK Harvey Insurance:SELF PAY [facility] Number: Effective Repository Date:2018-02-05 12/19/2017 GLENDA T Primary GLENDA T Kathy [id number] W Insurance:CARESOURCE KERONDOB: [facility] [place] [facility] [id number] Number: Repository [address]Bpa: 330 [id number] [phone] () Date:9676-38-24MX [address] [address]UF: 12/19/2017 Secondary NOT GIVENUNK Kathy Insurance:SELF PAY [facility] Number: Effective Repository Date:2017-11-30 11/29/2017 GLENDA T Primary GLENDA T Kathy [id number] W Insurance:CARESOURCE TAYLORDOB: [place] [facility] [id number] Number: Repository [address]Scu: 330 [id number] [phone] () Date:9733-09-97BG [address] [address]RK: 11/29/2017 Secondary NOT GIVENUNK Harvey Insurance:SELF PAY [facility] Number: Effective Repository Date:2017-11-29 11/28/2017 GLENDA T Primary GLENDA T Harvey [id number] W Insurance:CARESOURCE TAYLORDOB: [place] [facility] [id number] Number: Repository [address]Zhq: 330 [id number] [phone] () Date:1789-96-85JN [address] [address]FG: 11/28/2017 Secondary NOT GIVENUNK Harvey Insurance:SELF PAY [facility] Number: Effective Repository Date:2017-11-28 11/28/2017 GLENDA T Primary GLENDA T Kathy [id number] [address] Insurance:CARESOURCE TAYLORDOB: [facility] [place] [facility] [id number] Number: Repository [address]Ijr: 330 [id number] [phone] (HP) Date:7312-54-87KI [address] [address]UW: 11/28/2017 Secondary NOT GIVENUNK Kathy Insurance:SELF PAY [facility] Number: Effective Repository Date:2017-11-28 10/30/2017 GLENDA T Primary GLENDA T Harvey [id number] W Insurance:CARESOURCE TAYLORDOB: [facility] [place] [facility] [id number] Number: Repository [phone]: 330 [id number] [phone] (HP) Date:1688-96-18QA[address] [address]MT: 10/30/2017 Secondary NOT GIVENUNK Kathy Insurance:SELF PAY [facility] Number: Effective Repository Date:2017-10-30 10/30/2017 GLENDA T Primary GLENDA T Harvey [id number] W Insurance:CARESOURCE TAYLORDOB: [place] [address]09-12[place] Number: Repository [phone]: 330 [id number] [phone] (HP) Date:9184-90-40EF[address] [address]LZ: 10/30/2017 Secondary NOT GIVENUNK Harvey Insurance:SELF PAY [facility] Number: Effective Repository Date:2017-09-20 10/06/2017 GLENDA T Primary GLENDA T Kathy [id number] W Insurance:CARESOURCE TAYLORDOB: [facility] [place] [facility] [id number] [place] Number: Repository [address]Qyz: 330 [id number] [phone] (HP) Date:3710-41-00TS[address] [address]OF: 10/06/2017 Secondary NOT GIVENUNK Harvey Insurance:SELF PAY [facility] Number: Effective Repository Date:2017-10-06 09/21/2017 GLENDA T Primary GLENDA T Harvey [id number] W Insurance:CARESOURCE TAYLORDOB: [place] [address]12[place] Number: Repository [address]Uzi: 330 [id number] [phone] (HP) Date:1957-94-52AG[address] [address]IC: 09/21/2017 Secondary NOT GIVENUNK Harvey Insurance:SELF PAY [facility] Number: Effective Repository Date:2017-09-21 09/21/2017 GLENDA RANKIN0 Primary GLENDA Harvey W [place] Insurance:TAVO GUERRAB: [facility] RUTH [facility] [id number] Hospital [address]Xce: (330) Number: Repository [phone] () [id number] Date:3680-40-55QK[address] [address]WC: 09/21/2017 Secondary NOT GIVENUNK Harvey Insurance:SELF PAY [facility] Number: Effective Repository Date:2017-09-20 08/14/2017 Glenda Rankin0 Primary NOT GIVENUNK Kathy W [place] Insurance:SELF [facility]Y [facility] [address]Sur: (330) Number: Effective Repository [phone] () Date:2017-08-14
== END ==
LOC: LAB.FUTURE 06-29 11:28 → LAB 10:39
PROVIDERS: Family Provider Internal Medicine; PCP Internal Medicine; Referring Provider Internal Medicine; Visit Provider Internal Medicine
DX: I10 Essential (primary) hypertension (principal); E03.9 Hypothyroidism, unspecified
CPT/HCPCS: 36415; 80053; 80061; 84439; 84443

== ENCOUNTER → 2018-09-09 12:42 | Outpatient (CLI) | payer OTHER, SELFPAY ==
[2018-09-06 16:02] VITALS: BMI 50.5
[2018-09-09 13:33] LABS: Ferritin 22 ng/mL (8-252); Iron 47 ug/dL (50-170); Iron Binding Capacity,Total 368 ug/dL (250-450); T4 Free Direct 0.96 ng/dL (0.76-1.46); Thyroid Stim Hormone (TSH) 4.34 uIU/mL (0.358-3.74)
== END ==
LOC: LAB 12:44
PROVIDERS: Family Provider Internal Medicine; PCP Internal Medicine; Visit Provider Internal Medicine
DX: D50.9 Iron deficiency anemia, unspecified (principal); E03.9 Hypothyroidism, unspecified
CPT/HCPCS: 36415; 82728; 83540; 83550; 84439; 84443

== ENCOUNTER → 2018-10-08 09:36 | Outpatient (CLI) | payer OTHER, SELFPAY ==
[2018-09-06 16:02] VITALS: BMI 50.5
[2018-10-08 13:26] LABS: AST(SGOT) 24 U/L (15-37); Alanine Aminotransfer ALT/SGPT 29 U/L (13-56); Albumin, Serum 3.6 g/dL (3.2-5.0); Alkaline Phosphatase 62 U/L (45-117); Anion Gap 11 (5-15); BUN 12 mg/dL (7-18); BUN/Creat Ratio 20.5 RATIO (10-20); Calcium,Total 8.5 mg/dL (8.5-10.1); Chloride 105 mmol/L (98-107); Creatinine, Serum 0.58 mg/dL (0.55-1.02); EST Glomerular Filtration Rate 127 mL/min (>60); Est Glom Filt Rate - Afr Amer 154 mL/min (>60); Globulin 3.5 g/dL (2.2-4.2); Glucose 79 mg/dL (74-106); Potassium 4.5 mmol/L (3.5-5.1); Protein, Total 7.1 g/dL (6.4-8.2); Sodium Level 138 mmol/L (136-145)
== END ==
LOC: BIMLAB 09:36
PROVIDERS: Family Provider Internal Medicine; PCP Internal Medicine; Visit Provider Internal Medicine
DX: I10 Essential (primary) hypertension (principal)
CPT/HCPCS: 36415; 80053

== ENCOUNTER → 2018-10-25 17:03 | Outpatient (CLI) | payer OTHER, SELFPAY ==
[2018-10-25 14:54] VITALS: BMI 50.5
[2018-10-30 13:07] LABS: HPV APTIMA, High Risk Negative (Negative)
== END ==
PROVIDERS: Family Provider Internal Medicine; PCP Internal Medicine; Referring Provider Obstetrics & Gynecology; Visit Provider Obstetrics & Gynecology
DX: Z12.4 Encounter for screening for malignant neoplasm of cervix (principal)
CPT/HCPCS: 87624; 88175; G0145

== ENCOUNTER → 2018-12-12 | Outpatient (CLI) | payer OTHER, SELFPAY ==
[2018-12-12 15:00] VITALS: BMI 50.5
[2018-12-12 16:33] LABS: Absolute Lymphocyte Count 2.04 X10^3/ul (0.83-4.51); Absolute Neutrophil Count 5.6 X10^3/uL (2.0-7.7); Basophil# 0.03 X10^3/uL; Basophil% 0.4 % (0-1); Eosinophil# 0.29 X10^3/uL; Eosinophils% 3.4 % (0-5); Hematocrit 41.7 % (37-47); Hemoglobin 13.5 g/dl (12.0-15.0); Lymphocyte # 2.04 X10^3/ul (4.0); Mean Corp Hgb Conc 32.4 g/gl (32-36); Mean Corpuscular Hgb 29.7 pg (27.0-32.0); Mean Corpuscular Volume 91.6 fL (81-99); Mean Platelet Vol. 10.8 fl (6.2-12.0); Monocyte# 0.58 X10^3/uL; Monocyte% 6.8 % (0-10); Neutrophil # 5.55 X10^3/uL (2.7-7.7); Neutrophil % 65.2 % (47-70); POSITIVE COUNT NO; POSITIVE DIFFERENTIAL NO; POSITIVE MORPHOLOGY NO; Platelet Count 212 K/mm3 (150-450); RBC Distribution Width CV 13.4 % (11.6-14.6); RBC Distribution Width SD 44.5 fl (35.1-43.9); Red Blood Count 4.55 M/mm3 (4.2-5.4); White Blood Count 8.5 K/mm3 (4.4-11.0)
[2018-12-12 16:59] LABS: Thyroid Stim Hormone (TSH) 6.71 uIU/mL (0.358-3.74)
== END | disposition home or self-care (01) ==
LOC: LAB 15:36
PROVIDERS: Family Provider Internal Medicine; PCP Internal Medicine; Referring Provider Internal Medicine; Visit Provider Internal Medicine
DX: D50.9 Iron deficiency anemia, unspecified (principal); E03.9 Hypothyroidism, unspecified
CPT/HCPCS: 36415; 84443; 85025

== ENCOUNTER → 2018-12-21 | Outpatient (CLI) | payer OTHER, SELFPAY ==
[2018-11-14 14:32] VITALS: BMI 50.5
[2018-12-12 15:00] VITALS: BMI 50.5
== END | disposition home or self-care (01) ==
LOC: SL 12-25 15:05
PROVIDERS: Family Provider Internal Medicine; PCP Internal Medicine; Referring Provider Internal Medicine; Visit Provider Internal Medicine
DX: G47.10 Hypersomnia, unspecified (principal)
CPT/HCPCS: 95810

== ENCOUNTER → 2019-01-11 | Outpatient (CLI) | payer OTHER, SELFPAY ==
[2019-01-04 14:01] VITALS: BMI 48.1
== END | disposition home or self-care (01) ==
LOC: SL 11:48
PROVIDERS: Family Provider Internal Medicine; PCP Internal Medicine; Referring Provider Nurse Practitioner Acute Care; Visit Provider Nurse Practitioner Acute Care
DX: Z00.00 Encounter for general adult medical examination without abnormal findings (principal)

== ENCOUNTER → 2019-01-30 | Outpatient (CLI) | payer OTHER, SELFPAY ==
[2019-01-04 14:01] VITALS: BMI 48.1
[2019-01-30 13:35] VITALS: PULSE 109; PULSE 65; PULSE 70; PULSE 78; PULSE 80; PULSE 90; PULSE 94; PULSE 99; O2SAT 94; O2SAT 95; O2SAT 96; O2SAT 97; O2SAT 98; O2SAT 99
--- NOTE | 2019-01-31 08:42 | PCM.PSN.6M ---
PSN 6 Minute Walk Test - 6 Minute Walk Test 6 Minute Walk Test: 6 Minute Walk Test PSN:6-Minute Walk Test Start: 01/30/19 13:21 Freq: Status: Active Protocol: RESP.6MINW Document 01/30/19 13:35 [facility] (Rec: 01/30/19 13:39 [facility] [id number]) 6 Minute Walk Test Date Performed 01/30/19 Time Performed 12:30 Height 5 ft 7 in Weight: 308 lb Weight in Pounds 308.[address]: Afshan James Assistive device used: None Pre-test Oxygen Delivery Method Room Air Pulse Ox (%) 99 Pulse Rate (60-100 beats/min) 65 Dyspnea Denise Scale (0-10) 0 1st minute Oxygen Delivery Method Room Air Pulse Ox (%) 97 Pulse Rate (60-100 beats/min) 78 Dyspnea Denise Scale (0-10) 0 2nd minute Oxygen Delivery Method Room Air Pulse Ox (%) 94 Pulse Rate (60-100 beats/min) 80 Dyspnea Denise Scale (0-10) 1 3rd minute Oxygen Delivery Method Room Air Pulse Ox (%) 96 Pulse Rate (60-100 beats/min) 99 Dyspnea Denise Scale (0-10) 2 Reported Symptoms Increased Work of Breathing 4th minute Oxygen Delivery Method Room Air Pulse Ox (%) 98 Pulse Rate (60-100 beats/min) 90 Dyspnea Denise Scale (0-10) 2 Reported Symptoms Increased Work of Breathing 5th minute Oxygen Delivery Method Room Air Pulse Ox (%) 96 Pulse Rate (60-100 beats/min) 94 Dyspnea Denise Scale (0-10) 2 Reported Symptoms Increased Work of Breathing 6th minute Oxygen Delivery Method Room Air Pulse Ox (%) 95 Pulse Rate (60-100 beats/min) 109 H Dyspnea Denise Scale (0-10) 2 Reported Symptoms Increased Work of Breathing Post-test Oxygen Delivery Method Room Air Pulse Ox (%) 98 Pulse Rate (60-100 beats/min) 70 Dyspnea Denise Scale (0-10) 0 Full Laps Walked 26 Partial Lap, Number of Tiles Walked 15 Total Distance Walked (ft) 1549 - Interpretation Interpretation: The patient ambulated 1549 feet over the course of 6 minutes beginning on room air without assistive devices or breaks. Pretesting oxygen saturation was noted to be 99% on room air. With ambulation, the jeana oxygen saturation was 94%. This represents a significant exertional oxygen desaturation. - Recommendations Recommendations: There is no indication for the use of supplemental oxygen at this time.
== END | disposition home or self-care (01) ==
LOC: PSN 12:41
PROVIDERS: Family Provider Internal Medicine; PCP Internal Medicine; Referring Provider Nurse Practitioner Acute Care; Visit Provider Nurse Practitioner Acute Care
DX: R06.00 Dyspnea, unspecified (principal)
CPT/HCPCS: 94618

== ENCOUNTER → 2019-02-19 | Outpatient (CLI) | payer OTHER, SELFPAY ==
[2019-01-04 14:01] VITALS: BMI 48.1
--- NOTE | 2019-02-19 14:55 | PFTCOMP_ITS ---
COMPLETE PULMONARY FUNCTION TEST INTERPRETATION Brief HPI: Patient is a 33 year old female, currently under the care of Afshan James, who presents to [facility] for complete pulmonary function tests secondary to diagnosis of dyspnea. Respiratory therapist reports good effort and reproducible results. Interpretation: Forced expiration spirometry shows no large airways obstructive ventilatory defect with an FEV1 of 104% predicted. There is no significant bronchodilator r esponse by strict ATS criteria. Spirograms are of good quality and plateau normally. The respiratory flow volume loop shows a normal pattern. Lung volumes by body plethysmography show a normal total lung capacity at 5.42 L, 95% predicted. All other lung volumes are within normal limits. Diffusion capacity by carbon monoxide is normal at % predicted. The airway resistance is normal. No previous pulmonary function tests were available for review. Impression: These pulmonary function tests are within normal limits.
== END | disposition home or self-care (01) ==
LOC: PSN 12:25
PROVIDERS: Family Provider Internal Medicine; PCP Internal Medicine; Referring Provider Nurse Practitioner Acute Care; Visit Provider Nurse Practitioner Acute Care
DX: R06.00 Dyspnea, unspecified (principal)
CPT/HCPCS: 94060; 94726; 94729

== ENCOUNTER → 2019-03-12 08:07 | Outpatient (CLI) | payer OTHER, SELFPAY ==
[2019-01-04 14:01] VITALS: BMI 48.1
[2019-03-12 12:49] LABS: Thyroid Stim Hormone (TSH) 1.71 uIU/mL (0.358-3.74)
== END ==
PROVIDERS: Family Provider Internal Medicine; PCP Internal Medicine; Visit Provider Internal Medicine
DX: E03.9 Hypothyroidism, unspecified (principal)
CPT/HCPCS: 36415; 84443

== ENCOUNTER → 2019-07-25 12:08 | Outpatient (CLI) | payer OTHER, SELFPAY ==
[2019-07-25 14:26] VITALS: BMI 50.1
[2019-07-26 12:37] LABS: Bacteria 0 SEEN /hpf (None Seen); Mucous, Urine 0 SEEN /hpf (<or=2+); Red Blood Cells-Urine 0 SEEN /hpf (0-5); Squamous Epithelial Cells - UA 0 SEEN /hpf (5-10)
[2019-07-26 12:55] LABS: Color, Urine Yellow (Yellow); Glucose, Dipstick Normal (Normal); Ketone-Dipstick Negative (Negative); Leukocyte Esterase-Dipstick 500 /ul (Negative); Nitrite-Dipstick Negative (Negative); Occult Blood-Urine 10 /ul (Negative); Protein-Dipstick Negative (Negative); Specific Gravity, Urine 1.025 (1.002-1.030); Urine Bilirubin Dipstick Negative (Negative); Urine Clarity Turbid (Clear); Urine Urobilinogen Normal (Normal)
[2019-07-26 13:01] LABS: Amorphous Sediment 4+; Calcium Oxalate Crystals Ur 1+ /hpf (<or=2+); White Blood Cells 0-5 SEEN /hpf (0-5)
== END ==
LOC: LABSPEC 07-26 12:09
PROVIDERS: Family Provider Internal Medicine; PCP Internal Medicine; Referring Provider Nurse Practitioner Family; Visit Provider Nurse Practitioner Family
DX: R33.0 Drug induced retention of urine (principal)
CPT/HCPCS: 81001; 87086; 87088

== ENCOUNTER → 2019-10-02 16:03 | Outpatient (CLI) | payer OTHER, SELFPAY ==
[2019-07-28 21:48] VITALS: BMI 49.3
[2019-10-02 16:06] LABS: Mucous, Urine 0 SEEN /hpf (<or=2+); Red Blood Cells-Urine 0 SEEN /hpf (0-5)
[2019-10-02 17:36] LABS: Color, Urine Yellow (Yellow); Glucose, Dipstick Normal (Normal); Ketone-Dipstick 15 mg/dl (Negative); Leukocyte Esterase-Dipstick Negative /ul (Negative); Nitrite-Dipstick Negative (Negative); Occult Blood-Urine 250 /ul (Negative); Protein-Dipstick 15 mg/dl (Negative); Specific Gravity, Urine 1.025 (1.002-1.030); Urine Bilirubin Dipstick Negative (Negative); Urine Clarity Clear (Clear); Urine Urobilinogen Normal (Normal)
[2019-10-02 17:57] LABS: Squamous Epithelial Cells - UA 5-10 SEEN /hpf (5-10); White Blood Cells 0-5 SEEN /hpf (0-5)
[2019-10-02 17:59] LABS: Bacteria 2+ /hpf (None Seen)
== END ==
PROVIDERS: PCP Internal Medicine; Referring Provider Nurse Practitioner Family; Visit Provider Nurse Practitioner Family
DX: R30.0 Dysuria (principal)
CPT/HCPCS: 81001; 87086; 87088

== ENCOUNTER → 2020-02-13 15:05 | Outpatient (CLI) | payer OTHER, SELFPAY ==
[2020-02-13 14:37] VITALS: BMI 49.3
[2020-02-13 15:07] LABS: Bacteria 0 SEEN /hpf (None Seen); Mucous, Urine 0 SEEN /hpf (<or=2+)
[2020-02-13 17:00] LABS: Absolute Lymphocyte Count 2.27 X10^3/uL (0.83-4.51); Absolute Neutrophil Count 5.5 X10^3/uL (2.0-7.7); Basophil# 0.06 X10^3/uL; Basophil% 0.7 % (0-1); Color, Urine Yellow (Yellow); Eosinophil# 0.25 X10^3/uL; Eosinophils% 2.8 % (0-5); Glucose, Dipstick Normal (Normal); Hematocrit 41.7 % (37-47); Hemoglobin 12.8 g/dL (12.0-15.0); Ketone-Dipstick Negative (Negative); Leukocyte Esterase-Dipstick Negative /ul (Negative); Lymphocyte # 2.27 X10^3/ul (4.0); Lymphocyte % 25.7 % (19-41); Mean Corp Hgb Conc 30.7 g/dL (32-36); Mean Corpuscular Hgb 29.8 pg (27.0-32.0); Mean Corpuscular Volume 97.2 fL (81-99); Mean Platelet Vol. 11.2 fl (6.2-12.0); Monocyte# 0.61 X10^3/uL; Monocyte% 6.9 % (0-10); NRBC Flagged by Analyzer 0 % (0-5); Neutrophil # 5.54 X10^3/uL (2.7-7.7); Neutrophil % 62.7 % (47-70); Nitrite-Dipstick Negative (Negative); Occult Blood-Urine Negative /ul (Negative); Platelet Count 220 K/mm3 (150-450); Protein-Dipstick Negative (Negative); RBC Distribution Width CV 12.3 % (11.6-14.6); RBC Distribution Width SD 43.6 fl (35.1-43.9); Red Blood Count 4.29 M/mm3 (4.2-5.4); Specific Gravity, Urine 1.015 (1.002-1.030); Urine Bilirubin Dipstick Negative (Negative); Urine Clarity Sl. Cloudy (Clear); Urine Urobilinogen Normal (Normal); Urine pH 6.5 (5.0 - 8.0); White Blood Count 8.8 K/mm3 (4.4-11.0)
[2020-02-13 17:20] LABS: ALB/GLOB Ratio 1.1 RATIO (0.9-2.4); AST(SGOT) 25 U/L (15-37); Alanine Aminotransfer ALT/SGPT 32 U/L (13-56); Albumin, Serum 3.6 g/dL (3.2-5.0); Alkaline Phosphatase 65 U/L (45-117); Anion Gap 3 (5-15); BUN 15 mg/dL (7-18); BUN/Creat Ratio 24.2 RATIO (10-20); Calcium,Total 8.6 mg/dL (8.5-10.1); Chloride 109 mmol/L (98-107); Cholesterol 144 mg/dL (200); Creatinine, Serum 0.62 mg/dL (0.55-1.02); EST Glomerular Filtration Rate 118 mL/min (>60); Est Glom Filt Rate - Afr Amer 143 mL/min (>60); Globulin 3.3 g/dL (2.2-4.2); Glucose 86 mg/dL (74-106); High Density Lipoprotein 50 mg/dL; Potassium 4.5 mmol/L (3.5-5.1); Protein, Total 6.9 g/dL (6.4-8.2); Sodium Level 141 mmol/L (136-145); Thyroid Stim Hormone (TSH) 5.46 uIU/mL (0.358-3.74); Triglycerides 87 mg/dL; Very Low Density Lipoprotein 17 mg/dL (5-40)
[2020-02-13 17:58] LABS: White Blood Cells 0-5 SEEN /hpf (0-5)
[2020-02-13 18:00] LABS: Red Blood Cells-Urine 0-5 SEEN /hpf (0-5)
[2020-02-13 18:01] LABS: Squamous Epithelial Cells - UA 5-10 SEEN /hpf (5-10); Transitional Epithelial - Ur 0 SEEN /hpf (0-5)
== END ==
PROVIDERS: PCP Internal Medicine; Referring Provider Internal Medicine; Visit Provider Internal Medicine
DX: E03.9 Hypothyroidism, unspecified (principal); I10 Essential (primary) hypertension; R10.9 Unspecified abdominal pain
CPT/HCPCS: 36415; 80053; 80061; 81001; 84443; 85025

== ENCOUNTER → 2020-08-24 10:51 | Outpatient (CLI) | payer OTHER, SELFPAY ==
[2020-08-24 10:08] VITALS: BMI 55.9
[2020-08-24 13:27] LABS: Thyroid Stim Hormone (TSH) 2.33 uIU/mL (0.358-3.74)
== END ==
LOC: BIMLAB 10:52
PROVIDERS: PCP Internal Medicine; Referring Provider Internal Medicine; Visit Provider Internal Medicine
DX: E03.9 Hypothyroidism, unspecified (principal)
CPT/HCPCS: 36415; 84443

== ENCOUNTER → 2020-12-04 10:37 | Outpatient (CLI) | payer OTHER, SELFPAY ==
[2020-12-04 09:30] VITALS: BMI 55.1
[2020-12-04 12:04] LABS: Absolute Lymphocyte Count 1.57 X10^3/uL (0.83-4.51); Absolute Neutrophil Count 6.2 X10^3/uL (2.0-7.7); Basophil# 0.05 X10^3/uL; Basophil% 0.6 % (0-1); Eosinophil# 0.12 X10^3/uL; Eosinophils% 1.4 % (0-5); Hematocrit 44.7 % (37-47); Hemoglobin 13.8 g/dL (12.0-15.0); Lymphocyte # 1.57 X10^3/ul (0.83-4.51); Lymphocyte % 18.6 % (19-41); Mean Corp Hgb Conc 30.9 g/dL (32-36); Mean Corpuscular Hgb 28.6 pg (27.0-32.0); Mean Corpuscular Volume 92.5 fL (81-99); Monocyte# 0.45 X10^3/uL; Monocyte% 5.3 % (0-10); NRBC Flagged by Analyzer 0 % (0-5); Neutrophil # 6.16 X10^3/uL (2.7-7.7); Platelet Count 239 K/mm3 (150-450); RBC Distribution Width CV 12.7 % (11.6-14.6); RBC Distribution Width SD 43.4 fl (35.1-43.9); Red Blood Count 4.83 M/mm3 (4.2-5.4); White Blood Count 8.4 K/mm3 (4.4-11.0)
[2020-12-04 12:39] LABS: Anion Gap 5 (5-15); BUN 13 mg/dL (7-18); BUN/Creat Ratio 20.4 RATIO (10-20); Calcium,Total 8.9 mg/dL (8.5-10.1); Chloride 107 mmol/L (98-107); Creatinine, Serum 0.64 mg/dL (0.55-1.02); EST Glomerular Filtration Rate 114 mL/min (>60); Est Glom Filt Rate - Afr Amer 138 mL/min (>60); Glucose 89 mg/dL (74-106); Potassium 4.4 mmol/L (3.5-5.1); Sodium Level 138 mmol/L (136-145); T4 Free Direct 1.37 ng/dL (0.76-1.46); Thyroid Stim Hormone (TSH) 7.46 uIU/mL (0.358-3.74)
== END ==
PROVIDERS: PCP Internal Medicine; Referring Provider Physician Assistant; Visit Provider Physician Assistant
DX: R00.0 Tachycardia, unspecified (principal); F41.9 Anxiety disorder, unspecified; I10 Essential (primary) hypertension; E03.9 Hypothyroidism, unspecified
CPT/HCPCS: 36415; 80048; 84439; 84443; 85025

== ENCOUNTER → 2021-02-15 10:17 | Outpatient (CLI) | payer OTHER, SELFPAY ==
[2021-02-15 09:47] VITALS: BMI 55.1
[2021-02-15 11:02] LABS: Prolactin 10.1 ng/mL
[2021-02-19 22:37] LABS: Testosterone Free 3.8 pg/mL (0.0-4.2)
== END ==
PROVIDERS: PCP Internal Medicine; Referring Provider Nurse Practitioner Women's Health; Visit Provider Nurse Practitioner Women's Health
DX: R63.5 Abnormal weight gain (principal); R10.2 Pelvic and perineal pain; L68.0 Hirsutism; L70.9 Acne, unspecified
CPT/HCPCS: 36415; 82627; 84146; 84402; 82626

== ENCOUNTER → 2021-03-06 10:13 | Outpatient (CLI) | payer OTHER, SELFPAY ==
[2021-02-15 09:47] VITALS: BMI 55.1
--- NOTE | 2021-03-06 10:13 | US_ITS ---
STUDY: ULTRASOUND OF THE FEMALE PELVIS - COMPLETE REASON FOR EXAM: Female, 35 years old. Hirsutism, unable to lose weight, elevated testosterone levels LMP: 02/26/2021 TECHNIQUE: Transabdominal and Transvaginal TECHNICAL QUALITY: Adequate. COMPARISON: None. FINDINGS: The uterus is anteverted and is in a midline position. The uterus measures 8.4 x 4.8 x 3.5 cm. Normal uterine cervix. The endometrium measures 7 mm in thickness, and is hyperechoic. There is no demonstrated endometrial mass. There is no demonstrated myometrial mass. I.U.D. - The patient does not have an I.U.D. The right ovary is visualized. The right ovary measures 1.7 x 2.7 x 1.6 cm. There are multiple follicles of the right ovary without a dominant cyst. There is no visualized right adnexal mass or complex lesion. There is normal arterial and normal venous vascularity. The left ovary is visualized. The left ovary measures 3.1 x 2.4 x 1.6 cm. There are multiple follicles of the left ovary without a dominant cyst. There is no visualized left adnexal mass or complex lesion. There is normal arterial and normal venous vascularity. There is no fluid in the cul-de-sac. Visualized urinary bladder is unremarkable. Polycystic ovary disease: No, based on current criteria (patient has fewer than 10 follicles on each ovary, ovaries are not enlarged by volume) US/Pelvic (Non ) IMPRESSION: Unremarkable female pelvis. Electronically Signed: Chencho Phillips MD (Brooks) at 9:57 EDT , Service support ,
--- NOTE | 2021-03-06 10:13 | US_ITS ---
STUDY: ULTRASOUND OF THE FEMALE PELVIS - COMPLETE REASON FOR EXAM: Female, 35 years old. Hirsutism, unable to lose weight, elevated testosterone levels LMP: 02/26/2021 TECHNIQUE: Transabdominal and Transvaginal TECHNICAL QUALITY: Adequate. COMPARISON: None. FINDINGS: The uterus is anteverted and is in a midline position. The uterus measures 8.4 x 4.8 x 3.5 cm. Normal uterine cervix. The endometrium measures 7 mm in thickness, and is hyperechoic. There is no demonstrated endometrial mass. There is no demonstrated myometrial mass. I.U.D. - The patient does not have an I.U.D. The right ovary is visualized. The right ovary measures 1.7 x 2.7 x 1.6 cm. There are multiple follicles of the right ovary without a dominant cyst. There is no visualized right adnexal mass or complex lesion. There is normal arterial and normal venous vascularity. The left ovary is visualized. The left ovary measures 3.1 x 2.4 x 1.6 cm. There are multiple follicles of the left ovary without a dominant cyst. There is no visualized left adnexal mass or complex lesion. There is normal arterial and normal venous vascularity. There is no fluid in the cul-de-sac. Visualized urinary bladder is unremarkable. Polycystic ovary disease: No, based on current criteria (patient has fewer than 10 follicles on each ovary, ovaries are not enlarged by volume) US/Transvaginal Non- IMPRESSION: Unremarkable female pelvis. Electronically Signed: Chencho Phillips MD (Brooks) at 9:57 EDT , Service support ,
== END ==
LOC: OPUS 10:13
PROVIDERS: PCP Internal Medicine; Referring Provider Nurse Practitioner Women's Health; Visit Provider Nurse Practitioner Women's Health
DX: R10.2 Pelvic and perineal pain (principal); R63.5 Abnormal weight gain; L68.0 Hirsutism; L70.9 Acne, unspecified
CPT/HCPCS: 76830; 76856; 93976

== ENCOUNTER → 2021-03-29 10:35 | Outpatient (CLI) | payer OTHER, SELFPAY ==
[2021-03-29 12:51] LABS: ALB/GLOB Ratio 1.1 RATIO (0.9-2.4); AST(SGOT) 16 U/L (15-37); Alanine Aminotransfer ALT/SGPT 22 U/L (13-56); Albumin, Serum 3.3 g/dL (3.2-5.0); Alkaline Phosphatase 60 U/L (45-117); Anion Gap 4 (5-15); BUN 11 mg/dL (7-18); BUN/Creat Ratio 18.7 RATIO (10-20); Calcium,Total 8.5 mg/dL (8.5-10.1); Chloride 110 mmol/L (98-107); Cholesterol 131 mg/dL (200); Creatinine, Serum 0.59 mg/dL (0.55-1.02); EST Glomerular Filtration Rate 125 mL/min (>60); Est Glom Filt Rate - Afr Amer 151 mL/min (>60); Globulin 3.1 g/dL (2.2-4.2); Glucose 93 mg/dL (74-106); High Density Lipoprotein 41 mg/dL; Potassium 4.2 mmol/L (3.5-5.1); Protein, Total 6.4 g/dL (6.4-8.2); Sodium Level 140 mmol/L (136-145); Thyroid Stim Hormone (TSH) 1.61 uIU/mL (0.358-3.74); Triglycerides 74 mg/dL; Very Low Density Lipoprotein 15 mg/dL (5-40)
== END ==
LOC: BIMLAB 10:35
PROVIDERS: PCP Internal Medicine; Visit Provider Internal Medicine
DX: E03.9 Hypothyroidism, unspecified (principal); I10 Essential (primary) hypertension
CPT/HCPCS: 36415; 80053; 80061; 84443

== ENCOUNTER → 2022-05-10 | Outpatient (CLI) | payer OTHER, SELFPAY ==
[2022-05-10 08:20] LABS: Absolute Lymphocyte Count 2.49 X10^3/uL (0.83-4.51); Absolute Neutrophil Count 4.4 X10^3/uL (2.0-7.7); Basophil# 0.06 X10^3/uL; Basophil% 0.8 % (0-1); Eosinophil# 0.14 X10^3/uL; Eosinophils% 1.8 % (0-5); Hematocrit 38.2 % (37-47); Hemoglobin 12.1 g/dL (12.0-15.0); Lymphocyte # 2.49 X10^3/ul (0.83-4.51); Lymphocyte % 32.4 % (19-41); Mean Corp Hgb Conc 31.7 g/dL (32-36); Mean Corpuscular Hgb 29.7 pg (27.0-32.0); Mean Corpuscular Volume 93.9 fL (81-99); Monocyte# 0.58 X10^3/uL; Monocyte% 7.6 % (0-10); NRBC Flagged by Analyzer 0 % (0-5); Neutrophil # 4.36 X10^3/uL (2.7-7.7); Neutrophil % 56.7 % (47-70); Platelet Count 230 K/mm3 (150-450); RBC Distribution Width SD 44.4 fl (35.1-43.9); Red Blood Count 4.07 M/mm3 (4.2-5.4); White Blood Count 7.7 K/mm3 (4.4-11.0)
[2022-05-10 09:01] LABS: Thyroid Stim Hormone (TSH) 4.57 uIU/mL (0.358-3.74)
[2022-05-15 11:56] LABS: HPV APTIMA, High Risk Negative (Negative)
== END | disposition home or self-care (01) ==
PROVIDERS: Nurse Practitioner Women's Health; PCP Internal Medicine; Referring Provider Obstetrics & Gynecology; Visit Provider Obstetrics & Gynecology
DX: Z12.4 Encounter for screening for malignant neoplasm of cervix (principal); N93.9 Abnormal uterine and vaginal bleeding, unspecified
CPT/HCPCS: 36415; 84443; 85025; 87624; 88175; G0145

== ENCOUNTER → 2022-05-11 | Outpatient (CLI) | payer OTHER, SELFPAY ==
--- NOTE | 2022-05-11 18:00 | US_ITS ---
STUDY: ULTRASOUND OF THE FEMALE PELVIS - COMPLETE REASON FOR EXAM: Female, 37 years old. BLEEDING FOR 21 DAYS TECHNIQUE: Endovaginal. Transvaginal US was obtained to better visualized the ovaries. COMPARISON: 03/06/2021 FINDINGS: The uterus is anteverted and is in a midline position. The uterus measures 8.8 cm. There is a Nabothian cyst of the cervix. The endometrium measures 20 mm in thickness, and is hyperechoic. There is no demonstrated endometrial mass. There is no demonstrated myometrial mass. I.U.D. - The patient does not have an I.U.D. The right ovary is visualized. The right ovary measures 2.8 cm. 12 mm cyst. There is no visualized right adnexal mass or complex lesion. There is normal arterial and normal venous vascularity. The left ovary is visualized. The left ovary measures 3.5 cm. 22 mm cyst. There is no visualized left adnexal mass or complex lesion. There is normal arterial and normal venous vascularity. There is no fluid in the cul-de-sac. Urinary bladder volume is (in cc) 53. US/Transvaginal Non- IMPRESSION: Bilateral ovarian cysts. No follow up required. Nabothian cysts. Electronically Signed: Braeden Chandler MD at 19:31 EDT ,
--- NOTE | 2022-05-11 18:00 | US_ITS ---
STUDY: ULTRASOUND OF THE FEMALE PELVIS - COMPLETE REASON FOR EXAM: Female, 37 years old. BLEEDING FOR 21 DAYS TECHNIQUE: Endovaginal. Transvaginal US was obtained to better visualized the ovaries. COMPARISON: 03/06/2021 FINDINGS: The uterus is anteverted and is in a midline position. The uterus measures 8.8 cm. There is a Nabothian cyst of the cervix. The endometrium measures 20 mm in thickness, and is hyperechoic. There is no demonstrated endometrial mass. There is no demonstrated myometrial mass. I.U.D. - The patient does not have an I.U.D. The right ovary is visualized. The right ovary measures 2.8 cm. 12 mm cyst. There is no visualized right adnexal mass or complex lesion. There is normal arterial and normal venous vascularity. The left ovary is visualized. The left ovary measures 3.5 cm. 22 mm cyst. There is no visualized left adnexal mass or complex lesion. There is normal arterial and normal venous vascularity. There is no fluid in the cul-de-sac. Urinary bladder volume is (in cc) 53. US/Pelvic (Non ) IMPRESSION: Bilateral ovarian cysts. No follow up required. Nabothian cysts. Electronically Signed: Braeden Chandler MD at 19:31 EDT ,
== END | disposition home or self-care (01) ==
PROVIDERS: PCP Internal Medicine; Visit Provider Obstetrics & Gynecology
DX: R10.2 Pelvic and perineal pain (principal)
CPT/HCPCS: 76830; 76856

== ENCOUNTER 2023-03-19 13:21 | Emergency (ER) | payer OTHER, SELFPAY ==
[2023-03-19 13:22] VITALS: BP 129/76; PULSE 89; RESP 16; TEMP 36.8; O2SAT 96; BMI 52.5
--- NOTE | 2023-03-19 13:37 | RAD_ITS ---
STUDY: X-RAY - PELVIS AND RIGHT HIP REASON FOR EXAM: Female, 37 years old. pain TECHNIQUE: 3 views of the pelvis and hip. COMPARISON: 01/18/2021 FINDINGS: There is a non-specific bowel gas pattern. Normal visualized soft tissue structures. Normal bilateral iliac wings, sacroiliac joints and visualized sacrum. Normal bilateral superior and inferior pubic rami. Normal pubic symphysis. Normal bilateral ischial tuberosities. Normal visualized femoral head. Normal acetabulum. Normal hip joint. RAD/HIP, UNI W/ Pelvis 2-3 Views IMPRESSION: Normal x-ray examination of the pelvis and hip. Electronically Signed: Jose C Jones MD at 14:47 EDT ,
--- NOTE | 2023-03-19 13:43 | EX.ED.DYSGE1 ---
HPI <KARYN Brewer - Last Filed: 03/19/23 15:21> History of Present Illness Chief Complaint: Lower Extremity Injury Narrative Narrative: Patient presenting today with pain to her right hip that she has had for the past week. She reports that it has gotten more severe since Monday. She denies any known injury to her hip. She denies any radiation of pain. Pain is worse with ambulation and range of motion and is better with rest. PFSH <KARYN Brewer - Last Filed: 03/19/23 15:21> PFSH Medical History Anxiety Depression Headache Hypothyroidism Iron (Fe) deficiency anemia Left ventricular hypertrophy PCOS (polycystic ovarian syndrome) Super obesity Home Medications fexofenadine 180 mg tablet (Pascale Allergy) 180 mg PO QDAY PRN ALLERGIES 08/24/20 [History Last Taken Unknown] Compression stockings #4 ea 12/08/20 [Rx Last Taken Unknown] Boostrix Tdap 2.5 Lf unit-8 mcg-5 Lf/0.5 mL intramuscular syringe (diphth,pertus(acell),tetanus) 0.5 ml IM ONCE #1 mL 01/17/22 [Clinic Last Taken Unknown] buspirone 10 mg tablet 10 mg PO BID 3 months #180 tabs 03/15/22 [Rx Last Taken Unknown] levothyroxine 175 mcg tablet 175 mcg PO DAILY THYROID #90 tabs 04/26/22 [Rx Last Taken Unknown] labetalol 100 mg tablet 100 mg PO BID #180 tabs 08/08/22 [Rx Last Taken Unknown] Allergy/AdvReac Type Severity Reaction Status Date / Time Seasonal Allergies: Uncoded Allergy Intermediate Other Verified 03/19/23 13:22 cefprozil [From Cefzil] Allergy Hives Verified 03/19/23 13:22 Family History Mother Hypertension Anxiety Thyroid disorder Sleep apnea Father Hypertension Surgical History History of nasal polypectomy History of tonsillectomy and adenoidectomy Social History Smoking Status: Never smoker alcohol intake: current alcohol intake frequency: holidays/special occasions only details: social substance use type: does not use caffeine: No what type of physical activity do you participate in: none and walking seatbelt use: always do you feel safe at home: Yes additional social history: [employer]- [employer]ist Patient works in childcare ROS <KARYN Brewer - Last Filed: 03/19/23 15:21> ROS ED Constitutional Constitutional ED: Denies chills or fever(s) Cardiovascular Cardiovascular: Denies chest pain Respiratory/Chest Respiratory/Chest: Denies cough or dyspnea Gastrointestinal Gastrointestinal: Denies abdominal pain, nausea or vomiting Musculoskeletal Musculoskeletal: Reports arthralgias; Denies myalgias Integumentary Denies Abrasions or rash Neurologic Neurologic: Denies paresthesias or weakness EXAM <KARYN Brewer - Last Filed: 03/19/23 15:21> Physical Exam Const Vital Signs: 03/19/23 13:22 Temperature 98.2 F Temperature Source Temporal Pulse Rate 89 Respiratory Rate 16 Blood Pressure 129/76 H Blood Pressure Mean 93 Pulse Ox 96 Positive well nourished, well developed and no apparent distress General Appearance ED: well developed HEENT Reports normocephalic and head/scalp atraumatic Mouth ED: Yes moist mucous membranes normal Eyes PERRL and EOMs intact bilaterally Neck full ROM and supple Chest Wall inspection of chest normal Resp normal respiratory effort and clear to auscultation bilaterally Cardio regular rate and regular rhythm GI soft to palpation, non-tender, non-distended and no masses Back/Spine normal ROM and normal to inspection Extremity normal to inspection and full ROM Extremity Narrative: Pain with range of motion of the right hip, generalized pain to palpation to the right hip. No ecchymosis or erythema. Neuro oriented x3, CN's II-XII intact bilaterally, moves all extremities, no focal motor deficits and no sensory deficits noted Sensorium / Orientation: awake and alert Psych mental status grossly normal and thought process normal Skin no rashes or lesions noted and no wounds <Dr. Tim López DO - Last Filed: 03/19/23 17:02> Physical Exam Const Vital Signs: 03/19/23 13:22 Temperature 98.2 F Temperature Source Temporal Pulse Rate 89 Respiratory Rate 16 Blood Pressure 129/76 H Blood Pressure Mean 93 Pulse Ox 96 MDM <KARYN Brewer - Last Filed: 03/19/23 15:21> [facility] Narrative Medical decision making narrative: Patient presenting today with pain to her right hip that she has had for the past week that is worsened since Monday. She denies any known injury to her hip. Patient is well-appearing and in no acute distress, vitals are unremarkable. There is no erythema or ecchymosis to her hip. X-ray will be obtained to rule out fracture and is negative for any acute findings. I suspect that this could be bursitis or soft tissue injury. She has been given a referral for orthopedics. She was given Toradol here and reports improvement of her symptoms. She has been encouraged to take Tylenol and ibuprofen for her pain and has been given RICE instructions. She will be discharged home in stable condition and is comfortable with plan. Radiography X-Ray: Read by ED Physician and Read by Radiologist Diagnostic Testing: Clinical Impression(s) from Imaging Studies Hip/Pelvis X-Ray 03/19/23 13:37 IMPRESSION: Normal x-ray examination of the pelvis and hip. Electronically Signed: Jose C Jones MD at 14:47 EDT , <Dr. Tim López DO - Last Filed: 03/19/23 17:02> [facility] Narrative Medical decision making narrative: Patient presenting today with pain to her right hip that she has had for the past week that is worsened since Monday. She denies any known injury to her hip. Patient is well-appearing and in no acute distress, vitals are unremarkable. There is no erythema or ecchymosis to her hip. X-ray will be obtained to rule out fracture and is negative for any acute findings. I suspect that this could be bursitis or soft tissue injury. She has been given a referral for orthopedics. She was given Toradol here and reports improvement of her symptoms. She has been encouraged to take Tylenol and ibuprofen for her pain and has been given RICE instructions. She will be discharged home in stable condition and is comfortable with plan. I, Dr López, have reviewed the above progress note and course of action in the ER; agree with the above. I have personally seen and evaluated this patient, gone over history and physical, and discussed disposition and treatment plan with the patient. Radiography Diagnostic Testing: Clinical Impression(s) from Imaging Studies Hip/Pelvis X-Ray 03/19/23 13:37 IMPRESSION: Normal x-ray examination of the pelvis and hip. Electronically Signed: Jose C Jones MD at 14:47 EDT , Discharge Plan Triage Chief Complaint: Lower Extremity Injury ED Midlevel Provider: Zeynep Goodman ED Provider: Tim López Dx/Rx/DC Orders Clinical Impression: Right hip pain Instructions: ED Arthralgia Prescriptions: No Action fexofenadine [Pascale Allergy] 180 mg tablet 180 mg PO QDAY PRN (Reason: ALLERGIES) Boostrix Tdap 2.5-8-5 Lf-mcg-Lf/0.5mL syringe 0.5 ml IM ONCE Qty: 1 0RF (DME) Compression stockings Qty: 4 3RF Dose Instruction: As directed Rx Instructions: Bilateral calf length 20-30mmhg compression socks buspirone 10 mg tablet 10 mg PO BID 90 Days Qty: 180 2RF Rx Instructions: 10 mg PO twice a day; levothyroxine 175 mcg tablet 175 mcg PO DAILY Qty: 90 3RF labetalol 100 mg tablet 100 mg PO BID Qty: 180 0RF Primary Care Provider: Gaetano Watkins Referrals: Rizwan Duarte MD [Med Staff - Active Staff] - Rodrigo Watkins MD [Med Staff - Active Staff] - 1 Week if not improving Activity Restrictions/Additional Instructions: Ice the hip several times a day for the next few days, alternate Tylenol and ibuprofen for pain as needed. Disposition Disposition: Home, Self Care Discharge Date/Time: 03/19/23 15:12
[2023-03-19] MEDS: Ketorolac 30 MG/ML Syringe IM (13:48)
== END 2023-03-19 15:12 | disposition home or self-care (01) ==
PROVIDERS: Emergency Provider Emergency Medicine; PCP Family Medicine; Visit Provider Emergency Medicine
DX: M25.551 Pain in right hip (principal)
CPT/HCPCS: 73502; 96372; 99282

== ENCOUNTER 2024-06-16 10:35 | Emergency (ER) | payer OTHER, SELFPAY ==
[2024-06-16 10:36] VITALS: BP 146/91; PULSE 85; RESP 18; TEMP 36.6; O2SAT 98; BMI 50.3
--- NOTE | 2024-06-16 10:51 | EX.ED.VIS.UR ---
HPI HPI - URI History of Present Illness Chief Complaint: Cough Narrative Narrative: 39-year-old female presents with upper respiratory infection type symptoms that she has had since , 4 days ago. 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 Send intermittent fever, fatigue, cough, and shortness of breath. She denies any body aches, no renal rhinorrhea, although she can feel postnasal drip. She presents because of the shortness of breath, cough, and fever. She states that today is the first day that she has not had a fever, and that she slept for extended periods of time over the last 2 days. ROS ROS ED ROS Narrative Constitutional: Positive fever, no chills. Positive malaise and fatigue. HEENT: No sore throat. No neck pain. No loss of vision. No rhinorrhea. Cardiovascular: No chest pain. No palpitations. No pedal edema. Respiratory: Positive cough, positive shortness of breath. Abdominal: No abdominal pain. No nausea. No vomiting. Genitourinary: No dysuria. No hematuria. Musculoskeletal: No myalgias. No arthralgias. Neurologic: No headaches. No dizziness. No lightheadedness. [facility] Medical History PCOS (polycystic ovarian syndrome) Headache Super obesity Depression Anxiety Left ventricular hypertrophy Hypothyroidism Iron (Fe) deficiency anemia Home Medications ?Medication ?Instructions ?Recorded ?Last Taken ?Type fexofenadine 180 mg tablet 180 mg PO QDAY PRN ALLERGIES 08/24/20 Unknown History (Pascale Allergy) Compression stockings #4 ea 12/08/20 Unknown Rx Boostrix Tdap 2.5 Lf unit-8 mcg-5 0.5 ml IM ONCE #1 mL 01/17/22 Unknown Clinic Lf/0.5 mL intramuscular syringe (diphth,pertus(acell),tetanus) buspirone 10 mg tablet 10 mg PO BID 3 months #180 tabs 03/15/22 Unknown Rx levothyroxine 175 mcg tablet 175 mcg PO DAILY THYROID #90 tabs 04/26/22 Unknown Rx labetalol 100 mg tablet 100 mg PO BID #180 tabs 08/08/22 Unknown Rx albuterol sulfate 90 mcg/actuation 1 - 2 puff inhalation Q4H PRN PRN 06/16/24 Unknown Rx aerosol inhaler (Ventolin HFA) Wheezing #1 ea levofloxacin 750 mg tablet 750 mg PO DAILY #7 tabs 06/16/24 Unknown Rx Allergy/AdvReac Type Severity Reaction Status Date / Time Seasonal Allergies: Uncoded Allergy Intermediate Other Verified 06/16/24 10:36 cefprozil (From Cefzil) Allergy Hives Verified 06/16/24 10:36 Family History Mother Hypertension Anxiety Thyroid disorder Sleep apnea Father Hypertension Surgical History History of nasal polypectomy History of tonsillectomy and adenoidectomy Social History Smoking Status: Never smoker alcohol intake: current alcohol intake frequency: holidays/special occasions only details: social substance use type: does not use caffeine: No what type of physical activity do you participate in: none and walking seatbelt use: always do you feel safe at home: Yes 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 Vital signs noted. Nontoxic-appearing. HEENT grossly unremarkable, airway patent, no drooling or trismus. Cardiovascular examination reveals a regular rate and rhythm. While lungs are clear to auscultation bilaterally she has prolonged expiratory phase, able to speak in full sentences, no accessory muscle use. Abdomen is soft and nontender with positive bowel sounds, no guarding or rebound. Neurological examination nonfocal and nonlateralizing. Const Vital Signs: 06/16/24 10:36 06/16/24 11:02 Temperature 97.8 F Temperature Source Oral Pulse Rate 85 86 Respiratory Rate 18 18 Respiratory Pattern Normal Blood Pressure 146/91 H Blood Pressure Mean 109 Pulse Ox 98 Oxygen Delivery Method Room Air MDM MDM MDM Narrative Medical decision making narrative: Differential diagnosis includes but not limited to URI/bronchitis versus pneumonia versus pneumothorax. I have low suspicion for pneumothorax based on her history and physical examination. I offered to swab her for COVID, influenza, and RSV but she declined as treatment will be the same and symptomatic. Rhythm. Chest x-ray and 2 views obtained and interpreted by myself independently. She was also administered an albuterol aerosolized treatment. Chest x-ray and 2 views interpreted by myself shows questionable left lower lobe infiltrate. Given her clinical symptoms, she will be treated as pneumonia. I reviewed the radiologist report which confirms my independent interpretation. Upon repeat examination, she feels slightly improved. Pulse ox is 98% on room air. I feel that she could be treated as an outpatient with antibiotics and she was given her first dose of Levaquin here in the emergency department and prescription written for the next 7 days. She was also written a prescription for an albuterol inhaler and to be off work for the next 2 days. She will follow-up with her primary care provider. Return instructions to the emergency department were reviewed. Disposition is discharged home in stable condition. Radiography Diagnostic Testing: Clinical Impression(s) from Imaging Studies Chest X-Ray 06/16/24 10:55 IMPRESSION: Left basilar consolidation concerning for pneumonia. Electronically Signed: Janet Hilario MD at 11:27 EST Reading Location ID and State: [facility] / [place] Tel , Service support , Discharge Plan Triage Chief Complaint: Cough ED Provider: Frank Mtz Dx/Rx/DC Orders Clinical Impression: Pneumonia, Shortness of breath Instructions: ED Pneumonia (Adult) Prescriptions: New levofloxacin 750 mg tablet 750 mg PO DAILY Qty: 7 0RF albuterol sulfate [Ventolin HFA] 90 mcg/actuation HFA aerosol inhaler 1 - 2 puff inhalation Q4H PRN PRN (Reason: Wheezing) Qty: 1 0RF No Action fexofenadine [Pascale Allergy] 180 mg tablet 180 mg PO QDAY PRN (Reason: ALLERGIES) Boostrix Tdap 2.5-8-5 Lf-mcg-Lf/0.5mL syringe 0.5 ml IM ONCE Qty: 1 0RF (DME) Compression stockings Qty: 4 3RF Dose Instruction: As directed Rx Instructions: Bilateral calf length 20-30mmhg compression socks buspirone 10 mg tablet 10 mg PO BID 90 Days Qty: 180 2RF Rx Instructions: 10 mg PO twice a day; levothyroxine 175 mcg tablet 175 mcg PO DAILY Qty: 90 3RF labetalol 100 mg tablet 100 mg PO BID Qty: 180 0RF Stand Alone Forms: ED Work / School Excuse Primary Care Provider: Gaetano Watkins Referrals: Gaetano Watkins MD [Primary Care Provider] - 3-5 Days if not improving Activity Restrictions/Additional Instructions: Take antibiotics as directed. Use albuterol inhaler 1 to 2 puffs every 4-6 hours as needed for shortness of breath. Return with increased shortness of breath, new or worsening symptoms. Print Language: Spanish Disposition Disposition: Home, Self Care
--- NOTE | 2024-06-16 10:55 | RAD_ITS ---
HISTORY: Shortness of breath, cough. TECHNIQUE: XR Chest 2 Views. COMPARISON: 08/14/2017. FINDINGS: CARDIOMEDIASTINAL BORDERS: Cardiac silhouette within normal limits in size. Mediastinal contour unremarkable. LUNGS: Moderate left lower lobe consolidation and mild lingular opacity. PLEURA: No pleural effusion or pneumothorax seen. OSSEOUS STRUCTURES: Unremarkable. RAD/Chest PA and Lateral IMPRESSION: Left basilar consolidation concerning for pneumonia. Electronically Signed: Janet Hilario MD at 11:27 EST ,
[2024-06-16 11:02] VITALS: PULSE 86; RESP 18
[2024-06-16] MEDS: Albuterol 2.5 MG/3 ML VIAL.NEB. INHALATION (11:02)
[2024-06-16] MEDS: levoFLOXacin 750 MG Tablet PO (11:42)
== END 2024-06-16 11:43 | disposition home or self-care (01) ==
PROVIDERS: Emergency Provider Emergency Medicine; PCP Family Medicine; Visit Provider Emergency Medicine
DX: J18.9 Pneumonia, unspecified organism (principal); Z20.828 Contact with and (suspected) exposure to other viral communicable diseases
CPT/HCPCS: 71046; 94640; 99282

== ENCOUNTER 2024-08-01 15:33 | Emergency (ER) | payer OTHER, SELFPAY ==
[2024-08-01 15:34] VITALS: BP 157/87; PULSE 64; RESP 15; TEMP 36.1; O2SAT 100; BMI 50.8
--- NOTE | 2024-08-01 17:03 | EKG12_ITS ---
Test Reason : CHEST PAIN Blood Pressure : */* mmHG Vent. Rate : 66 BPM Atrial Rate : 66 BPM P-R Int : 150 ms QRS Dur : 82 ms QT Int : 466 ms P-R-T Axes : 54 51 5 degrees QTcB Int : 488 ms Normal sinus rhythm Low voltage QRS Possible Inferior infarct , age undetermined Cannot rule out Anterior infarct , age undetermined Abnormal ECG Confirmed by LIBBY BAIRD, BEVERLEY ([id number]), field map editor MARCIE REY ([id number]) on 08/02/2024 8:24:12 AM Referred By: Confirmed By: BEVERLEY SOUZA MD
[2024-08-01 17:34] VITALS: BP 142/82; PULSE 55; RESP 16; O2SAT 100
--- NOTE | 2024-08-01 17:35 | RAD_ITS ---
EXAM: XR CHEST, 1 VIEW CLINICAL INDICATION: chest pain TECHNIQUE: Frontal view of the chest. COMPARISON: 06/16/2024 FINDINGS: LUNGS AND PLEURAL SPACES: Unremarkable. No consolidation or edema. No pneumothorax. No effusion. HEART: Unremarkable. Cardiac silhouette not enlarged. MEDIASTINUM: Central airways and mediastinal contour are unremarkable. BONES/JOINTS: Unremarkable. No acute fracture. SOFT TISSUES: Unremarkable. RAD/Chest 1 View (Portable) IMPRESSION: No radiographic evidence of acute cardiopulmonary disease. Electronically Signed: Espinoza Wong MD at 17:59 EST ,
[2024-08-01 17:43] LABS: Absolute Lymphocyte Count 2.16 X10^3/uL (0.83-4.51); Absolute Neutrophil Count 6.3 X10^3/uL (2.0-7.7); Basophil# 0.06 X10^3/uL; Basophil% 0.6 % (0-1); Eosinophil# 0.13 X10^3/uL; Eosinophils% 1.4 % (0-5); Hemoglobin 12.6 g/dL (12.0-15.0); Lymphocyte # 2.16 X10^3/ul (0.83-4.51); Mean Corp Hgb Conc 32.3 g/dL (32-36); Mean Corpuscular Volume 89.9 fL (81-99); Mean Platelet Vol. 10.4 fl (6.2-12.0); Monocyte# 0.69 X10^3/uL; Monocyte% 7.3 % (0-10); NRBC Flagged by Analyzer 0 % (0-5); Platelet Count 256 K/mm3 (150-450); RBC Distribution Width CV 13.3 % (11.6-14.6); RBC Distribution Width SD 44.1 fl (35.1-43.9); Red Blood Count 4.34 M/mm3 (4.2-5.4); White Blood Count 9.4 K/mm3 (4.4-11.0)
[2024-08-01 18:02] LABS: Anion Gap 4 (5-15); BUN 13 mg/dL (7-18); BUN/Creat Ratio 17.5 RATIO (10-20); Calcium,Total 8.8 mg/dL (8.5-10.1); Chloride 108 mmol/L (98-107); Creatinine, Serum 0.74 mg/dL (0.55-1.02); EST Glomerular Filtration Rate 93 mL/min (>60); Est Glom Filt Rate - Afr Amer 113 mL/min (>60); Estimated Creatinine Clearance 157.63 ml/min; Glucose 87 mg/dL (74-106); Potassium 4.1 mmol/L (3.5-5.1); Sodium Level 138 mmol/L (136-145); Troponin-I HS (w/2H Reflex) 6 pg/mL (3.0-54.0)
--- NOTE | 2024-08-01 18:08 | EDS_ITS ---
HPI <KARYN Brewer - Last Filed: 08/01/24 21:11> History of Present Illness Chief Complaint: Chest Pain Narrative Narrative: Patient presenting today with midsternal chest pain that she has had intermittently over the past 2 weeks. She reports that the pain is worse with hunching over and certain movements of her torso. She denies any cardiac history. She reports that she did have pneumonia about a month ago and was on antibiotics for it, her symptoms did seem to resolve from this. She no longer has a cough. She does report an occasional soreness in her throat with swallowing, she reports that she notices this morning when she is anxious. She denies fevers and chills. She has a PMH of anxiety, HTN, PCOS. PE Risk Factors: Negative for Recent Travel/Surgery, Recent Immobilization, Prior DVT or PE or Cancer PFSH <KARYN Brewer - Last Filed: 08/01/24 21:11> [facility] Medical History PCOS (polycystic ovarian syndrome) Headache Super obesity Depression Anxiety Left ventricular hypertrophy Hypothyroidism Iron (Fe) deficiency anemia Home Medications ?Medication ?Instructions ?Recorded ?Last Taken ?Type fexofenadine 180 mg tablet 180 mg PO QDAY PRN ALLERGIES 08/24/20 Unknown History (Pascale Allergy) Compression stockings #4 ea 12/08/20 Unknown Rx Boostrix Tdap 2.5 Lf unit-8 mcg-5 0.5 ml IM ONCE #1 mL 01/17/22 Unknown Clinic Lf/0.5 mL intramuscular syringe (diphth,pertus(acell),tetanus) buspirone 10 mg tablet 10 mg PO BID 3 months #180 tabs 03/15/22 Unknown Rx levothyroxine 175 mcg tablet 175 mcg PO DAILY THYROID #90 tabs 04/26/22 Unknown Rx labetalol 100 mg tablet 100 mg PO BID #180 tabs 08/08/22 Unknown Rx albuterol sulfate 90 mcg/actuation 1 - 2 puff inhalation Q4H PRN PRN 06/16/24 Unknown Rx aerosol inhaler (Ventolin HFA) Wheezing #1 ea levofloxacin 750 mg tablet 750 mg PO DAILY #7 tabs 06/16/24 Unknown Rx Allergy/AdvReac Type Severity Reaction Status Date / Time Seasonal Allergies: Uncoded Allergy Intermediate Other Verified 08/01/24 15:34 cefprozil (From Cefzil) Allergy Hives Verified 08/01/24 15:34 Family History Mother Hypertension Anxiety Thyroid disorder Sleep apnea Father Hypertension Surgical History History of nasal polypectomy History of tonsillectomy and adenoidectomy Social History Smoking Status: Never smoker alcohol intake: current alcohol intake frequency: holidays/special occasions only details: social substance use type: does not use caffeine: No what type of physical activity do you participate in: none and walking seatbelt use: always do you feel safe at home: Yes additional social history: [employer] Patient works in childcare ROS <KARYN Brewer - Last Filed: 08/01/24 21:11> ROS ED Constitutional Constitutional ED: Denies chills or fever(s) ENT ENT ED: Reports sore throat Cardiovascular Cardiovascular: Reports chest pain; Denies palpitations Respiratory/Chest Respiratory/Chest: Denies cough or dyspnea Gastrointestinal Gastrointestinal: Denies abdominal pain, nausea or vomiting Musculoskeletal Musculoskeletal: Denies arthralgias or myalgias Integumentary Denies rash Neurologic Neurologic: Denies weakness EXAM <KARYN Brewer - Last Filed: 08/01/24 21:11> Physical Exam Const Vital Signs: 08/01/24 15:34 08/01/24 17:33 08/01/24 17:34 Temperature 97 F L Temperature Source Temporal Pulse Rate 64 55 L Respiratory Rate 15 16 Respiratory Effort Blood Pressure 157/87 H 142/82 H Blood Pressure Mean 110 102 Pulse Ox 100 100 Oxygen Delivery Method Room Air Room Air Room Air 08/01/24 17:37 08/01/24 19:00 08/01/24 19:11 Temperature 97.8 F Temperature Source Pulse Rate 54 L 54 L Respiratory Rate 16 16 Respiratory Effort Normal Non-Labored Blood Pressure 151/90 H 151/90 H Blood Pressure Mean 110 110 Pulse Ox 100 100 Oxygen Delivery Method Room Air Positive well nourished, well developed and no apparent distress General Appearance ED: well developed HEENT Reports normocephalic and head/scalp atraumatic HEENT Narrative: Posterior pharynx is clear, no tonsillar exudate, uvula midline, no trismus, no drooling Mouth ED: Yes moist mucous membranes normal Eyes PERRL and EOMs intact bilaterally Neck full ROM and supple Chest Wall inspection of chest normal Chest Narrative: Pain to palpation along the bilateral mid parasternal border Resp normal respiratory effort and clear to auscultation bilaterally Cardio regular rate and regular rhythm GI soft to palpation, non-tender, non-distended and no masses Back/Spine normal ROM and normal to inspection Extremity normal to inspection and full ROM Neuro oriented x3, CN's II-XII intact bilaterally, moves all extremities, no focal motor deficits and no sensory deficits noted Sensorium / Orientation: awake and alert Psych mental status grossly normal and thought process normal Skin no rashes or lesions noted and no wounds <Dr. Jessica Barbosa DO - Last Filed: 08/04/24 07:29> Physical Exam Const Vital Signs: 08/01/24 15:34 08/01/24 17:33 08/01/24 17:34 Temperature 97 F L Temperature Source Temporal Pulse Rate 64 55 L Respiratory Rate 15 16 Respiratory Effort Blood Pressure 157/87 H 142/82 H Blood Pressure Mean 110 102 Pulse Ox 100 100 Oxygen Delivery Method Room Air Room Air Room Air 08/01/24 17:37 08/01/24 19:00 08/01/24 19:11 Temperature 97.8 F Temperature Source Pulse Rate 54 L 54 L Respiratory Rate 16 16 Respiratory Effort Normal Non-Labored Blood Pressure 151/90 H 151/90 H Blood Pressure Mean 110 110 Pulse Ox 100 100 Oxygen Delivery Method Room Air [facility] <KARYN Brewer - Last Filed: 08/01/24 21:11> [facility] Narrative Medical decision making narrative: Patient presenting today with midsternal chest pains that she has had intermittently over the last 2 weeks. She notices her pain more when she is hunched over or with certain movements of her torso and upper extremities. This pain is reproducible on exam to palpation. She is well-appearing and in no acute distress. She is PERC negative, low suspicion for PE. Her CBC, BMP, and troponin are unremarkable. EKG is normal sinus rhythm without any ischemia. Chest x-ray negative for any cardiopulmonary abnormality. Examination is consistent with a chest wall strain. She had been doing a lot of coughing when she had pneumonia which likely contributed to this. She also reported having an occasional sore throat, she has no signs of strep throat on exam and has a low Centor score. I recommended that she follow-up with her PCP, she will be discharged home in stable condition. Lab Data Attestation: I reviewed the patient's lab results. Labs: Laboratory Results - last 24 hr 08/01/24 17:33 WBC 9.4 RBC 4.34 Hgb 12.6 Hct 39.0 MCV 89.9 MCH 29.0 MCHC 32.3 RDW Std Deviation 44.1 H RDW Coeff of Alejo 13.3 Plt Count 256 MPV 10.4 Immature Gran % (Auto) 0.700 Neut % (Auto) 67.0 Lymph % (Auto) 23.0 Lea % (Auto) 7.3 Eos % (Auto) 1.4 Baso % (Auto) 0.6 Absolute Neuts (auto) 6.3 Absolute Lymphs (auto) 2.16 Nucleated RBC % 0 Sodium 138 Potassium 4.1 Chloride 108 H Carbon Dioxide 26.0 Anion Gap 4 L BUN 13 Creatinine 0.74 Estim Creat Clear Calc 157.63 Est GFR (MDRD) Af Amer 113 Est GFR (MDRD) Non-Af 93 BUN/Creatinine Ratio 17.5 Glucose 87 Calcium 8.8 Troponin I High Sens 6 Radiography X-Ray: Read by ED Physician Diagnostic Testing: Clinical Impression(s) from Imaging Studies Chest X-Ray 08/01/24 17:35 IMPRESSION: No radiographic evidence of acute cardiopulmonary disease. Electronically Signed: Espinoza Wong MD at 17:59 EST , EKG Initial EKG: Comments: 66 bpm, normal sinus rhythm, no ST elevation, interpreted by attending ED physician <Dr. Jessica Barbosa, DO - Last Filed: 08/04/24 07:29> [facility] Narrative Medical decision making narrative: Patient presenting today with midsternal chest pains that she has had intermittently over the last 2 weeks. She notices her pain more when she is hunched over or with certain movements of her torso and upper extremities. This pain is reproducible on exam to palpation. She is well-appearing and in no acute distress. She is PERC negative, low suspicion for PE. Her CBC, BMP, and troponin are unremarkable. EKG is normal sinus rhythm without any ischemia. Chest x-ray negative for any cardiopulmonary abnormality. Examination is consistent with a chest wall strain. She had been doing a lot of coughing when she had pneumonia which likely contributed to this. She also reported having an occasional sore throat, she has no signs of strep throat on exam and has a low Centor score. I recommended that she follow-up with her PCP, she will be discharged home in stable condition. I have personally performed a face to face assessment of the patient and have reviewed the BRYANT Note. I performed a substantive portion of the visit including all aspects of the following. My amaral findings include: History is patient is a 39-year-old female with history of DEMARCUS, anxiety and depression as well as hypothyroidism presenting with midsternal chest pain. Has been around over the past 2 weeks and worse with certain movements. She did recently have pneumonia and was having a lot of coughing. She was concerned her pain could be more severe pathology and came in for further evaluation. Patient is low risk for ACS and has no ischemic changes on EKG. She has normal high sen sitive troponin. Chest x-ray viewed by myself as well as radiology does not show any acute process. Patient is PE RC negative. Low suspicion for PE and do not think she requires a D-dimer or CTA. I suspect the pain is muscle skeletal. Patient instructed to alternate ibuprofen and Tylenol and use heat to her anterior chest wall. Given return precautions. Counseled that her risk of major cardiac events is low but she should follow-up with her primary care doctor. She verbalizes agreement understand this plan. Other additions or changes: [None] Lab Data Labs: Laboratory Results - last 24 hr 08/01/24 17:33 WBC 9.4 RBC 4.34 Hgb 12.6 Hct 39.0 MCV 89.9 MCH 29.0 MCHC 32.3 RDW Std Deviation 44.1 H RDW Coeff of Alejo 13.3 Plt Count 256 MPV 10.4 Immature Gran % (Auto) 0.700 Neut % (Auto) 67.0 Lymph % (Auto) 23.0 Lea % (Auto) 7.3 Eos % (Auto) 1.4 Baso % (Auto) 0.6 Absolute Neuts (auto) 6.3 Absolute Lymphs (auto) 2.16 Nucleated RBC % 0 Sodium 138 Potassium 4.1 Chloride 108 H Carbon Dioxide 26.0 Anion Gap 4 L BUN 13 Creatinine 0.74 Estim Creat Clear Calc 157.63 Est GFR (MDRD) Af Amer 113 Est GFR (MDRD) Non-Af 93 BUN/Creatinine Ratio 17.5 Glucose 87 Calcium 8.8 Troponin I High Sens 6 Radiography Diagnostic Testing: Clinical Impression(s) from Imaging Studies Chest X-Ray 08/01/24 17:35 IMPRESSION: No radiographic evidence of acute cardiopulmonary disease. Electronically Signed: Espinoza Wong MD at 17:59 EST , Discharge Plan Triage Chief Complaint: Chest Pain ED Midlevel Provider: Zeynep Goodman ED Provider: Jessica Barbosa Dx/Rx/DC Orders Clinical Impression: Chest wall pain Instructions: ED Chest Pain, Noncardiac Prescriptions: No Action fexofenadine [Pascale Allergy] 180 mg tablet 180 mg PO QDAY PRN (Reason: ALLERGIES) Boostrix Tdap 2.5-8-5 Lf-mcg-Lf/0.5mL syringe 0.5 ml IM ONCE Qty: 1 0RF levofloxacin 750 mg tablet 750 mg PO DAILY Qty: 7 0RF albuterol sulfate [Ventolin HFA] 90 mcg/actuation HFA aerosol inhaler 1 - 2 puff inhalation Q4H PRN PRN (Reason: Wheezing) Qty: 1 0RF (DME) Compression stockings Qty: 4 3RF Dose Instruction: As directed Rx Instructions: Bilateral calf length 20-30mmhg compression socks buspirone 10 mg tablet 10 mg PO BID 90 Days Qty: 180 2RF Rx Instructions: 10 mg PO twice a day; levothyroxine 175 mcg tablet 175 mcg PO DAILY Qty: 90 3RF labetalol 100 mg tablet 100 mg PO BID Qty: 180 0RF Primary Care Provider: Gaetano Watkins Referrals: Gaetano Watkins MD [Primary Care Provider] - 1 Week Activity Restrictions/Additional Instructions: Follow-up with your PCP and return for any other concerns. Print Language: Singaporean Disposition Disposition: Home, Self Care Discharge Date/Time: 08/01/24 19:16
[2024-08-01 19:00] VITALS: BP 151/90; PULSE 54; RESP 16; O2SAT 100
[2024-08-01 19:11] VITALS: BP 151/90; PULSE 54; RESP 16; TEMP 36.6; O2SAT 100
[2024-08-01 19:40] LABS: Reflex Troponin-HS? (from REC) Y
== END 2024-08-01 19:16 | disposition home or self-care (01) ==
PROVIDERS: Emergency Provider Emergency Medicine; PCP Family Medicine; Visit Provider Emergency Medicine
DX: R07.89 Other chest pain (principal); I10 Essential (primary) hypertension; Z79.899 Other long term (current) drug therapy
CPT/HCPCS: 71045; 80048; 84484; 85025; 93005; 99283; A4216